=== PATIENT | female | born 1995 | race Caucasian/White ===

== ENCOUNTER 2016-12-24 13:23 | Emergency (ER) | payer OTHER ==
--- NOTE | 2016-12-24 13:51 | ED ---
General Adult HPI - General Chief complaint: Urogenital Stated complaint: poss UTI Time Seen by Provider: 12/24/16 13:38 Source: patient, RN notes reviewed Mode of arrival: ambulatory Limitations: no limitations - History of Present Illness Initial comments: 21-year-old female presents emergency Department chief complaint of urinary frequency and dysuria. Patient states doesn't present last 4-5 days. Patient felt that she may have seen some blood. She denies any chance of . She has mid to multiple urinary tract infections in the past. She has no flank pain no back pain denies any nausea, vomiting diarrhea constipation. Denies any fevers or chills. She does admit to ALLERGY to Bactrim. Patient offers no other complaints. - Related Data Home Medications Medication Instructions Recorded Confirmed Norelgestromin/Ethin.estradiol 1 patch TRANSDERM SA 12/24/16 12/24/16 [Xulane Patch] Previous Rx's Medication Instructions Recorded Ciprofloxacin HCl [Cipro] 500 mg PO Q12HR #10 tablet 12/24/16 Allergies Allergy/AdvReac Type Severity Reaction Status Date / Time sulfamethoxazole Allergy Rash/Hives Verified 12/24/16 13:52 [From Bactrim] trimethoprim [From Bactrim] Allergy Rash/Hives Verified 12/24/16 13:52 Review of Systems ROS Statement: Those systems with pertinent positive or pertinent negative responses have been documented in the HPI. ROS Other: All systems not noted in ROS Statement are negative. Past Medical History Past Medical History: No Reported History Additional Past Medical History / Comment(s): herpes History of Any Multi-Drug Resistant Organisms: None Reported Past Surgical History: Section, Ear Surgery Past Anesthesia/Blood Transfusion Reactions: No Reported Reaction Additional Past Anesthesia/Blood Transfusion Reaction / Comment(s): has never had anesthesia before Past Psychological History: Anxiety, Depression Smoking Status: Former smoker Past Alcohol Use History: Occasional Past Drug Use History: None Reported - Past Family History Mother Family Medical History: No Reported History General Exam Limitations: no limitations General appearance: alert, in no apparent distress Respiratory exam: Present: normal lung sounds bilaterally. Absent: respiratory distress, wheezes, rales, rhonchi, stridor Cardiovascular Exam: Present: regular rate, normal rhythm, normal heart sounds. Absent: systolic murmur, diastolic murmur, rubs, gallop, clicks GI/Abdominal exam: Present: soft, tenderness (Minimal suprapubic), normal bowel sounds. Absent: distended, guarding, rebound, rigid Back exam: Absent: CVA tenderness (R), CVA tenderness (L) Skin exam: Present: warm, dry, intact, normal color. Absent: rash Course Vital Signs 12/24/16 13:34 Temperature 98.4 F Pulse Rate 71 Respiratory 15 Rate Blood Pressure 116/57 O2 Sat by Pulse 97 Oximetry Medical Decision Making - Medical Decision Making 21-year-old female presented for dysuria. Patient has 8 wbc and urinalysis. Patient was treated for UTI as she is symptomatic at this time. Patient will have urine culture. Patient follow-up with primary care physician. Return parameters were discussed. - Lab Data Lab Results 12/24/16 Range/Units 14:00 Urine Color Yellow Urine Appearance Clear (Clear) Urine pH 6.0 (5.0-8.0) Ur Specific [place] 1.019 (1.001-1.035) Urine Protein Trace H (Negative) Urine Glucose (UA) Negative (Negative) Urine Ketones Negative (Negative) Urine Blood Negative (Negative) Urine Nitrite Negative (Negative) Urine Bilirubin Negative (Negative) Urine Urobilinogen <2.0 (<2.0) mg/dL Ur Leukocyte Esterase Trace H (Negative) Urine RBC 1 (0-5) /hpf Urine WBC 8 H (0-5) /hpf Ur Squamous Epith Cells <1 (0-4) /hpf Urine Bacteria Rare H (None) /hpf Urine Mucus Moderate H (None) /hpf Disposition Clinical Impression: Urinary tract infection Disposition: HOME SELF-CARE Condition: Stable Instructions: Urinary Tract Infection in Women (ED) Additional Instructions: Please return to the Emergency Department if symptoms worsen or any other concerns. Prescriptions: Ciprofloxacin HCl [Cipro] 500 mg PO Q12HR #10 tablet Referrals: Chavo Burch DO [Primary Care Provider] - 1-2 days Time of Disposition: 14:23
[2016-12-24 14:19] LABS: Appearance,Urine Clear (Clear); Bacteria,Urine Rare /hpf; Bilirubin,Urine Negative (Negative); Glucose,Urine (UA) Negative (Negative); Ketones,Urine Negative (Negative); Leukocyte Esterase,Urine Trace (Negative); Mucus,Urine Moderate /hpf; Nitrite,Urine Negative (Negative); Particle Count 8230; Protein,Urine Trace (Negative); RBC,Urine 1 /hpf (0-5); Specific Gravity,Urine 1.019 (1.001-1.035); Squamous Epithelial Cell,Urine <1 /hpf (0-4); UA Billing (MACRO vs. MICRO) MICRO; Urobilinogen,Urine <2.0 mg/dL (<2.0); WBC,Urine 8 /hpf (0-5)
[2016-12-24 14:36] VITALS: BP 104/57; PULSE 72; RESP 18; TEMP 98.1
== END 2016-12-24 14:37 | disposition home or self-care (01) ==
LOC: EC 13:23
DX: N39.0 Urinary tract infection, site not specified (principal); Z87.891 Personal history of nicotine dependence; Z79.3 Long term (current) use of hormonal contraceptives; Z88.1 Allergy status to other antibiotic agents
CPT/HCPCS: 81001; 81025; 87086; 99283

== ENCOUNTER 2017-01-07 12:18 | Emergency (ER) | payer OTHER ==
[2017-01-07 12:29] VITALS: BP 123/67; PULSE 72; RESP 16; TEMP 98
--- NOTE | 2017-01-07 13:17 | ED ---
Upper Extremity HPI - General Chief Complaint: Extremity Injury, Upper Stated Complaint: Hook in thumb Time Seen by Provider: 01/07/17 12:24 Source: patient Mode of arrival: ambulatory Limitations: no limitations - History of Present Illness Initial Comments: 21-year-old female presents with left thumb fishhook for the last 18 hours. Patient states she did cut part of the fishhook off but can't get the resident through. Patient states she slipped on the inner thumb. She denies any fevers. She states her tetanus is up-to-date. Patient states she did try to clean it. Patient states it hurts to move her thumb but no loss of range of motion or sensation. No other concerns or complaints. MD Complaint: Injury to:: left, finger -: hour(s) (18) Other Extremity Injury: Fingers: Left (thumb) Improves With: immobilization Worsens With: movement of extremity Context: other (fish hook) - Related Data Home Medications Medication Instructions Recorded Confirmed Norelgestromin/Ethin.estradiol 1 patch TRANSDERM SA 12/24/16 01/07/17 [Xulane Patch] Previous Rx's Medication Instructions Recorded Cephalexin [Keflex] 500 mg PO Q8HR #30 cap 01/07/17 Allergies Allergy/AdvReac Type Severity Reaction Status Date / Time sulfamethoxazole Allergy Rash/Hives Verified 01/07/17 12:31 [From Bactrim] trimethoprim [From Bactrim] Allergy Rash/Hives Verified 01/07/17 12:31 Review of Systems ROS Statement: Those systems with pertinent positive or pertinent negative responses have been documented in the HPI. ROS Other: All systems not noted in ROS Statement are negative. Skin: Reports: other (Left thumb fishhook) Past Medical History Past Medical History: No Reported History Additional Past Medical History / Comment(s): herpes History of Any Multi-Drug Resistant Organisms: None Reported Past Surgical History: Section, Ear Surgery Past Anesthesia/Blood Transfusion Reactions: No Reported Reaction Additional Past Anesthesia/Blood Transfusion Reaction / Comment(s): has never had anesthesia before Past Psychological History: Anxiety, Depression Smoking Status: Current every day smoker Past Alcohol Use History: Daily Past Drug Use History: None Reported - Past Family History Mother Family Medical History: No Reported History General Exam Limitations: no limitations General appearance: alert, in no apparent distress Neurological exam: Present: alert, oriented X3, CN II-XII intact Psychiatric exam: Present: normal affect, normal mood Skin exam: Present: warm, dry, normal color. Absent: intact (puncture wound, left thumb, slight swelling, + tender, limited ROM due to pain ), rash Course Vital Signs 01/07/17 12:25 Temperature 98 F Pulse Rate 72 Respiratory 16 Rate Blood Pressure 123/67 O2 Sat by Pulse 96 Oximetry Procedures - Procedures Initial comment: Patient was prepped and draped appropriately 1.5 mL of 1% lidocaine was used locally around the fishhook. Patient tolerated it well. [place] was pushed through and the [place] was snipped off. Patient was soaked in Betadine and normal saline bacitracin and dressing was applied patient tolerated it well. No consultations. Medical Decision Making - Medical Decision Making Discussed importance of good wound care. Patient will be sent home with good wound care instructions along with antibiotics. Patient states her tetanus is up-to-date. Patient to keep monitoring her puncture wound if redness swelling fevers or discharge occur patient to return. Disposition Clinical Impression: Fish hook injury of finger of left hand, Puncture wound Disposition: HOME SELF-CARE Condition: Good Instructions: Puncture Wound (ED), Soft Tissue Foreign Body (ED) Prescriptions: Cephalexin [Keflex] 500 mg PO Q8HR #30 cap Referrals: Chavo Burch DO [Primary Care Provider] - 1-2 days Time of Disposition: 13:21
--- NOTE | 2017-01-07 13:29 | XR ---
EXAMINATION TYPE: XR finger LT DATE OF EXAM: 01/07/2017 COMPARISON: 10/15/2013 HISTORY: 21-year-old female with a pain, fish hook in the left thumb TECHNIQUE: 3 views coned down left thumb FINDINGS: [place] is present within the soft tissues of the radial aspect of the mid thumb. On the AP view, th is closely approaches but does not touch the bone. Associated soft tissue swelling. No acute fracture or dislocation. IMPRESSION: [place] with the radial mid thumb soft tissues. On the AP view, this closely approaches but does not contact the underlying bone. No acute fracture or dislocation.
== END 2017-01-07 13:25 | disposition home or self-care (01) ==
LOC: EC 12:18
DX: S61.042A Puncture wound with foreign body of left thumb without damage to nail, initial encounter (principal); F17.200 Nicotine dependence, unspecified, uncomplicated; Z88.2 Allergy status to sulfonamides; Z79.3 Long term (current) use of hormonal contraceptives; W45.8XXA Other foreign body or object entering through skin, initial encounter
CPT/HCPCS: 99283

== ENCOUNTER → 2017-03-30 | Outpatient (CLI) | payer OTHER ==
--- NOTE | 2017-03-30 23:44 | MR ---
EXAMINATION TYPE: MR brain wo/w con DATE OF EXAM: 03/30/2017 COMPARISON: NONE HISTORY: Migraines w/o aura TECHNIQUE: Multiplanar, multisequence images of the brain and brainstem is performed without and with IV contras t, utilizing 10 mL intravenous Gadavist . FINDINGS: The ventricles and sulci appear normal. There is no mass effect nor midline shift. There is no sign of intracranial hemorrhage. There is a 12 mm area of ring decreased signal in the cortex lef t parietal lobe. The brainstem is intact. Corpus callosum appears normal. Sella turcica is normal. There is a prominen t draining vein posterior to the low signal lesion. There is normal appearance of the venous sinuses. I see no pathologic enhancement. IMPRESSION: 12 mm lesion in the left parietal lobe with draining vein. 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 No acute intracranial abnormality. The remainder of the brain appears normal.
== END | disposition home or self-care (01) ==
LOC: RADMRIMAIN 17:49
PROVIDERS: ATTEND Physician Assistant
DX: G93.9 Disorder of brain, unspecified (principal); G43.009 Migraine without aura, not intractable, without status migrainosus
CPT/HCPCS: 70553; A9581

== ENCOUNTER 2017-09-07 11:31 | Emergency (ER) | payer OTHER ==
[2017-09-07] MEDS ORDERED: METOCLOPRAMIDE 5 MG/ML 2 ML VIAL IM STA (12:31)
[2017-09-07] MEDS ORDERED: KETOROLAC 30 MG/ML 1 ML VIAL IM STA (12:31)
[2017-09-07] MEDS ORDERED: diphenhydrAMINE 50 MG CAP PO STA (12:31)
--- NOTE | 2017-09-09 06:15 | CDI ---
Documentation Clarification OP Dear Abimbola TY, DO Please do addendum of ED physician document. Thank you, Candida Foster Professor Of Criminal Justice If you have any question, Please contact assistant inventory manager at [phone] [facility]
== END 2017-09-07 13:36 | disposition home or self-care (01) ==
LOC: EC 11:31
DX: R51 Headache (principal); T43.295A Adverse effect of other antidepressants, initial encounter; R11.0 Nausea; R25.1 Tremor, unspecified; Z85.828 Personal history of other malignant neoplasm of skin; Z88.2 Allergy status to sulfonamides
CPT/HCPCS: 81025; 99284; J2765; J1885

== ENCOUNTER → 2018-10-24 | Outpatient (CLI) | payer OTHER ==
--- NOTE | 2018-10-24 15:24 | US ---
EXAMINATION TYPE: Transabdominal DATE OF EXAM: 10/24/2018 9:36 AM COMPARISON: NONE CLINICAL HISTORY: Z36 confirm dates. Dates EXAM PERFORMED: Transabdominal (TA) EXAM MEASUREMENTS: GESTATIONAL AGE / DATING Dates by LMP: (8 weeks/5 days) EDC: 05/31/2019 Dates by Current Scan for: (7 weeks/6 days) EDC: 06/06/2019 MATERNAL ANATOMY Uterus: 9.6 x 6.6 x 5.8 cm Right Ovary: 4.5 x 3.0 x 2.4 cm Left Ovary: 3.0 x 1.5 x 2.0 cm Post CDS / Adnexa: no free fluid Presence of free fluid: no Presence of corpus luteal cyst: right ovarian cystic appearing lesion - 2.3 x 2.7 x 2.1 cm Presence of subchorionic bleed: hypoechoic area seen at 1.4 x 1.1 x 1.1 cm GESTATION / SURVEY CRL: 1.5 cm (7 weeks/6 days) MSD: seen, not measured Yolk Sac (normal less than 6mm): 2.8 mm Heart Rate: 155 bpm Rhythm: Normal IUP: Viable IUP Date of LMP: 08/24/2018, Beta HcG (if available): Not available at this time Single live IUP measuring 7 weeks 5 days. IMPRESSION: Single live intrauterine with sonographic age of 7 weeks and 5 days and estimated date of d elivery of 06/06/2019, overall concordant with menstrual age. Small subchorionic hemorrhage is seen oc cupying just less than 25% the gestational sac diameter.
== END | disposition home or self-care (01) ==
LOC: RADUSWWP 09:09
PROVIDERS: ATTEND Obstetrics & Gynecology
DX: Z36.9 Encounter for antenatal screening, unspecified (principal); Z3A.01 Less than 8 weeks gestation of pregnancy
CPT/HCPCS: 76801

== ENCOUNTER → 2019-03-05 | Outpatient (CLI) | payer OTHER ==
[2019-03-05 14:34] LABS: HCT 34.4 % (34.0-46.0); HGB 11.5 gm/dL (11.4-16.0); MCH 30.1 pg (25.0-35.0); MCHC 33.5 g/dL (31.0-37.0); MCV 89.9 fL (80.0-100.0); Mean Platelet Volume 7.2; Platelet Count 246 k/uL (150-450); RBC 3.82 m/uL (3.80-5.40); RDW 14.4 % (11.5-15.5); WBC 10.1 k/uL (3.8-10.6)
== END | disposition home or self-care (01) ==
LOC: LABWHC1 12:31
PROVIDERS: ATTEND Obstetrics & Gynecology
DX: Z34.82 Encounter for supervision of other normal pregnancy, second trimester (principal)
CPT/HCPCS: 36415; 82950; 85027

== ENCOUNTER 2019-03-26 13:39 | Outpatient (CLI) | payer OTHER ==
[2019-03-26 17:20] VITALS: BP 118/55; PULSE 97; RESP 18; TEMP 99
--- NOTE | 2019-05-01 00:01 | P.MSEPDOC ---
Presenting Problems - Arrival Data Date of Arrival on Unit: 03/26/19 Time of Arrival on Unit: 13:35 Mode of Transport: EMS - Complaint OB-Reason for Admission/Chief Complaint: Rule Out PROM, Other Comment: by ems for evaluation for labor states contx 20-30 min apart. also sttes increase in discharge. went to [facility] initially. no care avail there. pt is pt of dr botello. pt transferred to triage 2 from ems for eval for contractions Medical History - Information : 2 Para: 1 Term: 1 : 0 Abortions: Spontaneous or Elective: 0 Number of Living Children: 1 - Gestational Age Gestational Age by CORAZON (wks/days): 29 Weeks and 6 Days - History Complications: Prior Sexually Transmitted Diseases: HSV Comment: no active lesions since december 2018. Review of Systems - Review of Systems Constitutional: No problems Breast: No problems ENT: No problems Cardiovascular: No problems Respiratory: No problems Gastrointestinal: No problems Genitourinary: No problems Musculoskeletal: No problems Neurological: No problems Skin: No problems Vital Signs - Temperature Temperature: 99.0 F Temperature Source: Oral - Pulse Right Brachial Pulse Rate: 97 Pulse Assessment Method: Automatic Cuff - Respirations Respiratory Rate: 18 Oxygen Delivery Method: Room Air O2 Sat by Pulse Oximetry: 98 - Blood Pressure Right Arm Blood Pressure: 118/55 Blood Pressure Mean: 76 Blood Pressure Source: Automatic Cuff Medical Screen Scoring (Pre) - Cervical Exam Dilation: 0 cm = 0 Membranes: Intact - Uterine Contractions Frequency: N/A Duration: N/A Intensity: N/A - Maternal Vital Signs Maternal Temperature: N/A Maternal Blood Pressure: N/A Signs of Preeclampsia: N/A Maternal Respirations: N/A - Maternal Trauma Maternal Trauma: N/A - Assessment - Baby A Baseline FHR: 140 Heart Rate - NICHD Category: Category I (Normal) = 0 NST: Reactive Position: N/A Station: N/A - Total Score - Baby A Total Score - Baby A: 0 - Total Score - Baby B Total Score - Baby B: 0 - Total Score - Baby C Total Score - Baby C: 0 - Level of Risk - Baby A Level of Risk - Baby A: Low (0-5) - Level of Risk - Baby B Level of Risk - Baby B: Low (0-5) - Level of Risk - Baby C Level of Risk - Baby C: Low (0-5) Physician Notification (Pre) - Physician Notified Physician Notified Date: 03/26/19 Physician Notified Time: 14:30 Spoke With: rajwinder Zhou Order Received: Yes - Notification Comment Comment: discharge home. to keep next sched appt with dr ahmadi on 04-02 Medical Screen Scoring (Post) - Cervical Exam Dilation: Exam Deferred Effacement: Exam Deferred - Uterine Contractions Frequency: N/A Duration: N/A Intensity: N/A - Maternal Vital Signs Maternal Temperature: N/A Maternal Blood Pressure: N/A Signs of Preeclampsia: N/A Maternal Respirations: N/A - Pain Assessment Pain Scale Used: Numeric (1 - 10) Pain Intensity: 0 - Maternal Trauma Maternal Trauma: N/A - Assessment - Baby A Heart Rate: 135 Heart Rate - NICHD Category: Category I (Normal) = 0 NST: Reactive Position: N/A Station: N/A - Total Score Total Score - Baby A: 0 Total Score - Baby B: 0 Total Score - Baby C: 0 - Post Treatment Level of Risk Post Treatment Level of Risk - Baby A: Low (0-5) Post Treatment Level of Risk - Baby B: Low (0-5) Post Treatment Level of Risk - Baby C: Low (0-5) Physician Notification (Post) - Physician Notified Physician Notified Date: 03/26/19 Physician Notified Time: 14:30 Spoke With: rajwinder Zhou Order Received: No Disposition - Disposition OB Disposition: Discharge to home Discharge Date: 03/26/19 Discharge Time: 14:40 I agree with the RN Medical Screening Exam: Yes Risk & Benefit of care provided described in d/c instruction: Yes Diagnosis: FALSE LABOR BEFORE 37 COMPLETED WEEKS OF GEST, SECOND TRI
== END 2019-03-26 14:40 | disposition home or self-care (01) ==
LOC: FBPOP 13:39
PROVIDERS: ATTEND Obstetrics & Gynecology
DX: O47.03 False labor before 37 completed weeks of gestation, third trimester (principal); Z3A.29 29 weeks gestation of pregnancy
CPT/HCPCS: 59025; 96361; G0463; 99213

== ENCOUNTER 2019-05-26 15:47 | Emergency (ER) | payer OTHER ==
[2019-05-26 15:59] VITALS: BP 108/65; PULSE 70; RESP 16; TEMP 97.4
--- NOTE | 2019-05-26 16:12 | ED ---
Eye Problem HPI - General Chief complaint: Eye Problems Stated complaint: pink eye Source: patient Mode of arrival: ambulatory Limitations: no limitations - History of Present Illness Initial comments: 24-year-old female currently 38 weeks presents emergency department today for chief complaint of bilateral redness drainage itchy. Patient states that her son is currently being treated for pinkeye she states that her eyes of an itchy red bilaterally and the resting in the morning. Patient states that she's been taking her son's ciprofloxacin drops however she wants her on prescription and to be healthy prior to the patient's of her son. She states that the redness has decreased however she is crusting the morning still and eye irritation. Patient denies contact lens use she states she's been wearing her glasses. Patient denies any vision loss, either rashes diplopia or any other concerns. Remaining review of systems negative upon arrival patient a ppears well signs acute distress - Related Data Home Medications Medication Instructions Recorded Confirmed Pnv,Calcium 72/Iron/Folic Acid 1 each PO DAILY MDD 1 03/26/19 03/26/19 [ Plus Tablet] Ranitidine HCl [Zantac] 150 mg PO HS 03/26/19 03/26/19 Previous Rx's Medication Instructions Recorded Erythromycin Ophth Oint [Romycin 1 applic BOTH EYES QID 3 Days #1 05/26/19 Ophth Oint] tube Allergies Allergy/AdvReac Type Severity Reaction Status Date / Time sulfamethoxazole Allergy Rash/Hives Verified 05/26/19 15:59 [From Bactrim] trimethoprim [From Bactrim] Allergy Rash/Hives Verified 05/26/19 15:59 Review of Systems ROS Statement: Those systems with pertinent positive or pertinent negative responses have been documented in the HPI. ROS Other: All systems not noted in ROS Statement are negative. Past Medical History Past Medical History: No Reported History Additional Past Medical History / Comment(s): herpes History of Any Multi-Drug Resistant Organisms: None Reported Past Surgical History: Section, Ear Surgery Past Anesthesia/Blood Transfusion Reactions: No Reported Reaction Additional Past Anesthesia/Blood Transfusion Reaction / Comment(s): has never had anesthesia before Past Psychological History: Anxiety, Depression Smoking Status: Former smoker Past Alcohol Use History: None Reported Past Drug Use History: None Reported - Past Family History Mother Family Medical History: No Reported History General Exam - General Exam Comments Initial Comments: General: The patient is awake and alert, in no distress, and does not appear acutely ill. Eye: +3 mm pupils are equal, round and reactive to light, extra-ocular movements are intact. No nystagmus. There is very mild b/l conjunctival injection. no crusting noted. No signs of icterus. Cardiovascular: There is a regular rate and rhythm. No murmur, rub or gallop is appreciated. Respiratory: Lungs are clear to auscultation, respirations are non-labored, breath sounds are equal. No wheezes, stridor, rales, or rhonchi. Musculoskeletal: Normal ROM, no tenderness. Strength 5/5. Sensation intact. Pulses equal bilaterally 2+. Neurological: A&O x 3. CN II-XII intact grossly, There are no obvious motor or sensory deficits. Coordination appears grossly intact. Speech is normal. Skin: Skin is warm and dry and no rashes or lesions are noted. Psychiatric: Cooperative, appropriate mood & affect, normal judgment. Limitations: no limitations Course Vital Signs 05/26/19 15:57 Temperature 97.4 F L Pulse Rate 70 Respiratory 16 Rate Blood Pressure 108/65 O2 Sat by Pulse 97 Oximetry Medical Decision Making - Medical Decision Making 24-year-old female presenting for bilateral conjunctival injection. Son being treated for pink eye. Patient states she's been using his drops. Patient has mild conjunctival injection bilaterally states she wakes up with crusting. No other complaints patient appears well afebrile no signs of systemic disease. Patient be prescribed erythromycin given primary care follow-up return parameters were discussed case discussed with attending provider patient was discharged appearing well. Disposition Clinical Impression: Conjunctivitis Disposition: HOME SELF-CARE Condition: Good Instructions (If sedation given, give patient instructions): Conjunctivitis (ED) Additional Instructions: Please use medication as discussed. Please follow-up with family doctor in the next 2 days. Please return to emergency room if the symptoms increase or worsen or for any other concerns. Prescriptions: Erythromycin Ophth Oint [Romycin Ophth Oint] 1 applic BOTH EYES QID 3 Days #1 tube Is patient prescribed a controlled substance at d/c from ED?: No Referrals: Chavo Burch DO [Primary Care Provider] - 1-2 days Time of Disposition: 16:11
== END 2019-05-26 16:15 | disposition home or self-care (01) ==
LOC: EC 15:47
DX: O99.89 Other specified diseases and conditions complicating pregnancy, childbirth and the puerperium (principal); H10.9 Unspecified conjunctivitis; Z3A.38 38 weeks gestation of pregnancy; Z79.899 Other long term (current) drug therapy; Z88.1 Allergy status to other antibiotic agents; Z88.2 Allergy status to sulfonamides; Z87.891 Personal history of nicotine dependence
CPT/HCPCS: 99283

== ENCOUNTER 2019-06-04 05:55 | Inpatient (IN) | payer OTHER ==
[2019-05-28 12:48] VITALS: BMI 37.8
--- NOTE | 2019-06-03 18:10 | P.HPOB ---
History of Present Illness H&P Date: 06/03/19 Chief Complaint: Scheduled repeat section This is a 24 y.o. female, 2, para 1, with an estimated date of confinement of 06/06/2019, estimated gestational age of 39-5/7 weeks, who presents for repeat section. She admits to good movement. She c omplains of occasional contractions. OB Hx: . History of 1 previous section. 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 Social Hx: Single. Unemployed. Review of Systems Constitutional: Denies chills, Denies fever Eyes: denies blurred vision, denies pain Ears, nose, mouth and throat: Denies headache, Denies sore throat Cardiovascular: Denies chest pain, Denies shortness of breath Gastrointestinal: Reports abdominal pain (irregular ctxs) Genitourinary: Reports pelvic pain, Reports Musculoskeletal: Reports low back pain Integumentary: Denies pruritus, Denies rash Neurological: Denies numbness, Denies weakness Psychiatric: Denies anxiety, Denies depression Past Medical History Past Medical History: GERD/Reflux Additional Past Medical History / Comment(s): herpes History of Any Multi-Drug Resistant Organisms: None Reported Past Surgical History: Section, Ear Surgery Past Anesthesia/Blood Transfusion Reactions: No Reported Reaction Additional Past Anesthesia/Blood Transfusion Reaction / Comment(s): has never had anesthesia before Past Psychological History: No Psychological Hx Reported Smoking Status: Former smoker Past Alcohol Use History: None Reported Past Drug Use History: None Reported - Past Family History Mother Family Medical History: No Reported History Medications and Allergies Home Medications Medication Instructions Recorded Confirmed Type Pnv,Calcium 72/Iron/Folic Acid 1 each PO DAILY MDD 1 03/26/19 05/28/19 History [ Plus Tablet] Ranitidine HCl [Zantac] 150 mg PO HS 03/26/19 06/04/19 History Acyclovir [Zovirax] 400 mg PO BID 05/28/19 05/28/19 History Allergies Allergy/AdvReac Type Severity Reaction Status Date / Time sulfamethoxazole Allergy Rash/Hives Verified 06/04/19 06:15 [From Bactrim] trimethoprim [From Bactrim] Allergy Rash/Hives Verified 06/04/19 06:15 Exam Osteopathic Statement: *. No significant issues noted on an osteopathic structural exam other than those noted in the History and Physical/Consult. HEENT: within normal limits Heart: regular rate and rhythm Lungs: clear to auscultation Abdomen: Cervix: 1.5 cm/70%/-1 heart tones: 140s by doppler Extremities: negative Homans Results Result Diagrams: 06/04/19 06:20 Assessment and Plan (1) 39 weeks gestation of Current Visit: No Status: Acute Code(s): Z3A.39 - 39 WEEKS GESTATION OF SNOMED Code(s): 40817212 (2) Previous delivery affecting Current Visit: No Status: Acute Code(s): O34.219 - MATERNAL CARE FOR UNSP TYPE SCAR FROM PREVIOUS DEL SNOMED Code(s): 318053032 Plan: Proceed with repeat section. I have discussed the risks, benefits, and alternative therapies for the above- mentioned procedure and for both sedation/anesthesia as well as necessary blood products administration, if indicated, as they pertain to this patient. The patient has indicated her understanding and acceptance of the risks and procedures discussed.
[2019-06-04] MEDS ORDERED: CITRIC ACID-SODIUM CITRATE 15 ML CUP PO ONE (06:19)
[2019-06-04] MEDS ORDERED: LIDOCAINE 1% 20 ML VIAL (10MG/ML) FOR IV START INTRADERMA PRN (06:19)
[2019-06-04 06:29] LABS: Basophils % (A) 0 %; Eosinophils # (A) 0.1 k/uL (0-0.7); Eosinophils % (A) 1 %; HCT 36.5 % (34.0-46.0); HGB 12.2 gm/dL (11.4-16.0); Lymphocytes # (A) 1.8 k/uL (1.0-4.8); Lymphocytes % (A) 20 %; MCH 30.2 pg (25.0-35.0); MCHC 33.5 g/dL (31.0-37.0); Mean Platelet Volume 6.8; Monocytes # (A) 0.4 k/uL (0-1.0); Monocytes % (A) 4 %; Neutrophils # (A) 6.4 k/uL (1.3-7.7); Neutrophils % (A) 72 %; Platelet Count 230 k/uL (150-450); RBC 4.06 m/uL (3.80-5.40); RDW 13.8 % (11.5-15.5); WBC 8.9 k/uL (3.8-10.6)
[2019-06-04] MEDS: LACTATED RINGERS 1,000 ML IV SCH ×2 (06:39→12:12)
[2019-06-04] MEDS ORDERED: NALBUPHINE 10 MG/ML (1 ML AMP) ONE (07:58)
[2019-06-04] MEDS ORDERED: MORPHINE SULFATE (PF) 0.3 MG/0.3 ML SYR ONE (07:58)
[2019-06-04] MEDS ORDERED: ONDANSETRON 4 MG/2 ML VIAL ONE (07:58)
[2019-06-04] MEDS ORDERED: KETOROLAC 30 MG/ML 1 ML VIAL ONE (07:58)
[2019-06-04] MEDS ORDERED: OXYTOCIN 10 UNIT/ML 1 ML VIAL ONE (07:58)
--- NOTE | 2019-06-04 08:40 | P.OP ---
Date of Procedure: 06/04/19 Preoperative Diagnosis: 1. Intrauterine at 39-5/7 weeks. 2. History of previous section. 3. History of herpes. Postoperative Diagnosis: Same Procedure(s) Performed: Repeat low transverse section Anesthesia: spinal (Duramorph) Surgeon: Natalie Baumann Supervisor Nurse #1: Angie Fontanez Estimated Blood Loss (ml): 500 Pathology: none sent Condition: stable Disposition: floor Indications for Procedure: This is a 24-year-old female 2 para 1 at 39-5/7 weeks who presented for repeat section. She did have a history of herpes but no recent outbreaks. I have discussed the risks, benefits, and alternative therapies for the above- mentioned procedure and for both sedation/anesthesia as well as necessary blood products administration, if indicated, as they pertain to this patient. The patient has indicated her understanding and acceptance of the risks and procedures discussed. Operative Findings: A viable male is noted in the vertex presentation with scores of 9 at 1 minute and 9 at 5 minutes and infant weight of 7 lbs. 3 oz. Normal uterus tubes and ovaries are noted. Description of Procedure: The patient is taken to the operating room where she is placed in the dorsal supine position with leftward tilt after spinal Duramorph anesthesia is given. She is prepped and draped in the normal sterile fashion. Skin was tested and found to be adequately anesthetized. A Pfannenstiel skin incision was made with a scalpel through the previous laparotomy scar. A second knife was used to carry the incision down to the underlying layer of fascia. The fascia was nicked in the midline with a scalpel and then extended laterally bilaterally with Muñiz scissors. The anterior lip of the fascia was grasped with 2 Ame clamps and then dissected off the underlying rectus muscle in the midline with Muñiz scissors. The inferior aspect of the fascial incision was grasped with 2 Ame clamps and dissected off the underlying rectus muscle and the midline with Muñiz scissors. Next the peritoneum layer was tented up with 2 hemostats and then entered sharply with the scalpel. The incision is extended superiorly and inferiorly with Metzenbaum scissors. Next a DeLee retractor is placed. The vesicouterine peritoneum is entered sharply with Metzenbaum scissors and extended laterally bilaterally with Metzenbaum scissors and then the bladder f lap is pushed inferiorly. The lower uterine segment is incised in transverse fashion with the scalpel and then bluntly entered with a hemostat. Clear fluid is noted. The incision was then extended laterally bilaterally with 2 fingers. Next the 's head is delivered through the incision. Nose and mouth are bulb suctioned. The remainder of the is easily delivered and placed on mother's abdomen. Cord is clamped and cut. is taken to warmer by nursing staff. Uterine fundus is gently massaged and placenta is delivered manually. Uterus is exteriorized and cleared of all clots and debris. Uterine incision is closed with 0 Vicryl suture in a running locked fashion. A second layer of 0 Vicryl suture is used in a running fashion for hemostasis. Excellent hemostasis is noted. Posterior cul-de-sac is suctioned of all clots and debris. Uterus is returned to the abdomen. Incision is noted to be hemostatic. Peritoneal layer is closed with 0 Vicryl suture in a running fashion. Muscle layer is reapproximated with 0 Vicryl suture in interrupted fashion. Fascia layer is then closed with 0 PDS suture with 2 sutures meeting in the midline and the knots buried in either side and in the midline. The subcutaneous tissue was then closed with 2-0 Vicryl suture. Skin layer was then closed with oscar. All sponge and needle counts are correct. The patient is taken to recovery room in stable condition.
[2019-06-04] MEDS ORDERED: NALOXONE 0.4 MG/ML 1 ML VIAL IV PRN (09:04)
[2019-06-04] MEDS ORDERED: METOCLOPRAMIDE 5 MG/ML 2 ML VIAL IVP PRN (09:04)
[2019-06-04] MEDS ORDERED: ZOLPIDEM 5 MG TAB PO PRN (09:04)
[2019-06-04] MEDS ORDERED: LANOLIN CREAM 5 GM TUBE TOPICAL PRN (09:04)
[2019-06-04] MEDS ORDERED: ACETAMINOPHEN TAB 325 MG TAB PO PRN (09:04)
[2019-06-04] MEDS ORDERED: diphenhydrAMINE 50 MG CAP PO PRN (09:04)
[2019-06-04] MEDS ORDERED: MEASLES-MUMPS-RUBELLA VACC/PF 12,500 UNIT/0.5 ML VIAL SQ ONE (09:04)
[2019-06-04] MEDS ORDERED: diphenhydrAMINE 25 MG CAP PO PRN (09:04)
[2019-06-04] MEDS ORDERED: diphenhydrAMINE 50 MG/ML 1 ML VIAL IVP PRN ×3 (09:04→09:51)
[2019-06-04] MEDS ORDERED: ONDANSETRON 4 MG/2 ML VIAL IVP PRN ×2 (09:04→09:51)
[2019-06-04] MEDS ORDERED: OXYTOCIN 20 UNITS/1000 ML NS 1,000 ML IV SCH (09:04)
[2019-06-04] MEDS: SENNOSIDES-DOCUSATE SODIUM 1 EACH TAB PO SCH ×2 (09:20→19:38)
[2019-06-04] MEDS ORDERED: NALBUPHINE 10 MG/ML (1 ML AMP) IV PRN (09:51)
[2019-06-04] MEDS ORDERED: HYDROmorphone 0.5 MG/0.5 ML SYRINGE IVP PRN (09:51)
[2019-06-04] MEDS: ACYCLOVIR 200 MG CAP PO SCH ×2 (09:56→21:20)
[2019-06-04] MEDS: KETOROLAC 30 MG/ML 1 ML VIAL IVP PRN ×2 (15:58→23:25)
[2019-06-04] MEDS: FAMOTIDINE 20 MG TAB PO SCH ×2 (21:20→21:21)
[2019-06-05] MEDS: HYDROcodone/APAP 5-325MG 1 EACH TAB PO PRN ×2 (07:26→23:09)
[2019-06-05 08:23] LABS: Basophils % (A) 0 %; Eosinophils # (A) 0.1 k/uL (0-0.7); Eosinophils % (A) 1 %; HCT 32.9 % (34.0-46.0); HGB 11.1 gm/dL (11.4-16.0); Lymphocytes # (A) 1.2 k/uL (1.0-4.8); Lymphocytes % (A) 17 %; MCH 30.4 pg (25.0-35.0); MCHC 33.8 g/dL (31.0-37.0); MCV 90.1 fL (80.0-100.0); Monocytes # (A) 0.3 k/uL (0-1.0); Monocytes % (A) 5 %; Neutrophils # (A) 5.2 k/uL (1.3-7.7); Neutrophils % (A) 75 %; Platelet Count 202 k/uL (150-450); RBC 3.65 m/uL (3.80-5.40); RDW 14.1 % (11.5-15.5); WBC 6.9 k/uL (3.8-10.6)
--- NOTE | 2019-06-05 08:40 | P.PNOBGPC ---
Subjective - Subjective Principal diagnosis: Status post repeat section postoperative day #1 Interval history: Patient is doing well. She is breast-feeding. Lochia is decreasing. Her pain is fairly well controlled. She is passing some flatus but no bowel movement yet. She is urinating without difficulty. Patient reports: Reports appetite normal, Reports voiding normally, Reports pain well controlled, Reports ambulating normally : doing well, nursing well Objective - Vital Signs Latest vital signs: Vital Signs Temp Pulse Pulse Resp BP Pulse Ox 06/05/19 05:57 16 06/05/19 04:00 16 06/05/19 02:00 16 06/05/19 00:00 98.4 F 62 16 105/60 06/04/19 20:30 20 06/04/19 20:00 98.3 F 62 20 102/56 95 06/04/19 18:00 16 99 06/04/19 16:00 16 99 06/04/19 15:46 98.2 F 60 18 108/62 99 06/04/19 14:51 16 98 06/04/19 12:51 16 06/04/19 12:00 97.6 F 54 L 16 104/51 97 06/04/19 10:51 16 98 06/04/19 10:41 96.1 F L 50 L 16 101/56 98 06/04/19 10:11 49 L 16 108/57 06/04/19 09:51 16 98 06/04/19 09:41 52 L 16 101/58 98 06/04/19 09:26 53 L 16 105/50 97 06/04/19 09:11 55 L 16 99/56 97 06/04/19 08:56 56 L 16 109/53 98 06/04/19 08:41 96.2 F L 68 16 108/52 98 Intake and Output 06/04/19 06/05/19 06/05/19 22:59 06:59 14:59 Output Total 325 750 Balance -325 -750 Output: Urine 325 750 Straight 325 Other: Voiding Method Indwelling Catheter - Exam Extremities: Present: normal. Absent: tenderness Abdomen: Present: normal appearance, soft (Positive bowel sounds 4). Absent: distention, tenderness Incision: Present: normal, dry, intact. Absent: erythematous Uterus: Present: normal, firm. Absent: tenderness - Labs Labs: Abnormal Lab Results - Last 24 Hours (Table) 06/05/19 Range/Units 07:35 RBC 3.65 L (3.80-5.40) m/uL Hgb 11.1 L (11.4-16.0) gm/dL Hct 32.9 L (34.0-46.0) % Assessment and Plan Assessment: Status post repeat section postoperative day #1 (1) 39 weeks gestation of Current Visit: No Status: Acute Code(s): Z3A.39 - 39 WEEKS GESTATION OF SNOMED Code(s): 83903536 (2) Previous delivery affecting Current Visit: No Status: Acute Code(s): O34.219 - MATERNAL CARE FOR UNSP TYPE SCAR FROM PREVIOUS DEL SNOMED Code(s): 868250542 Plan: Continue with postoperative and care today. Anticipate possible discharge home tomorrow. Advance diet as tolerated.
[2019-06-05] MEDS: KETOROLAC 30 MG/ML 1 ML VIAL IVP PRN (08:45)
[2019-06-05] MEDS: FAMOTIDINE 20 MG TAB PO SCH (08:46)
[2019-06-05] MEDS: SENNOSIDES-DOCUSATE SODIUM 1 EACH TAB PO SCH ×2 (08:47→19:24)
[2019-06-05] MEDS: SIMETHICONE 80 MG CHEWABLE PO PRN (08:47)
[2019-06-05] MEDS: ACYCLOVIR 200 MG CAP PO SCH ×2 (08:47→20:02)
--- NOTE | 2019-06-05 09:14 | P.PN ---
Progress Note - Text 06/05 726am 24-year-old female status post with a spinal anesthetic, patient has Duramorph for postop pain control, patient has a VAS of 6 with complaints of pruritus which is getting better. Patient to follow-up with OB doctor for postop pain control
[2019-06-05] MEDS: HYDROcodone/APAP 7.5-325MG 1 EACH TAB PO PRN ×2 (12:31→18:00)
[2019-06-05] MEDS: IBUPROFEN 600 MG TAB PO PRN ×2 (15:56→21:01)
[2019-06-05] MEDS: LACTATED RINGERS 1,000 ML IV SCH ×2 (16:24→21:20)
[2019-06-06] MEDS: IBUPROFEN 600 MG TAB PO PRN ×4 (02:12→20:12)
[2019-06-06] MEDS: HYDROcodone/APAP 7.5-325MG 1 EACH TAB PO PRN ×4 (04:56→22:06)
--- NOTE | 2019-06-06 08:41 | P.PNOBGPC ---
Subjective - Subjective Principal diagnosis: Status post repeat section postoperative day #2 Interval history: Patient is complaining of more pain on her incision more towards the right side. She states it's a burning sensation. Her pain medications do not seem to help very much. She is alternating between ibuprofen and [place]. She is ambulating and passing flatus and bowel movement. She is urinating without difficulty. Patient reports: Reports appetite normal, Reports voiding normally, Reports pain poorly controlled, Reports ambulating normally [place]: doing well, nursing well Objective - Vital Signs Latest vital signs: Vital Signs Temp Pulse Resp BP Pulse Ox 06/05/19 23:15 97.9 F 63 18 108/68 98 06/05/19 16:00 98.4 F 67 16 117/71 94 L 06/05/19 14:00 20 06/05/19 12:00 20 06/05/19 10:00 20 Intake and Output 06/05/19 06/06/19 06/06/19 22:59 06:59 14:59 Other: Voiding Method Toilet - Exam Extremities: Present: normal Abdomen: Present: normal appearance, soft (Positive bowel sounds 4). Absent: distention, tenderness Incision: Present: normal, dry, intact. Absent: erythematous Uterus: Present: normal, firm. Absent: tenderness Assessment and Plan Assessment: Status post repeat section postoperative day #2 (1) 39 weeks gestation of Current Visit: No Status: Acute Code(s): Z3A.39 - 39 WEEKS GESTATION OF SNOMED Code(s): 84038361 (2) Previous delivery affecting Current Visit: No Status: Acute Code(s): O34.219 - MATERNAL CARE FOR UNSP TYPE SCAR FROM PREVIOUS DEL SNOMED Code(s): 234037892 Plan: Patient encouraged to try ice packs on her incision. She is also encouraged to continue alternating between ibuprofen and [place] 7.5 so that she is taking something every 3 hours. I offered to switch from [place] to Tylenol No. 3, however patient would like to stick with the [place] right now. Will not discharge at this time due to pain issues.
[2019-06-06] MEDS: SENNOSIDES-DOCUSATE SODIUM 1 EACH TAB PO SCH ×2 (09:16→19:30)
[2019-06-06] MEDS: ACYCLOVIR 200 MG CAP PO SCH ×2 (09:29→20:13)
[2019-06-06] MEDS: SIMETHICONE 80 MG CHEWABLE PO PRN (22:06)
[2019-06-07] MEDS: IBUPROFEN 600 MG TAB PO PRN ×3 (01:16→13:14)
[2019-06-07] MEDS: HYDROcodone/APAP 7.5-325MG 1 EACH TAB PO PRN ×2 (04:14→10:30)
[2019-06-07] MEDS: FAMOTIDINE 20 MG TAB PO SCH (04:44)
--- NOTE | 2019-06-07 07:21 | P.DS ---
Providers Date of admission: 06/04/19 05:55 Expected date of discharge: 06/07/19 Attending physician: Natalie Baumann Primary care physician: Stated None - Discharge Diagnosis(es) (1) 39 weeks gestation of Current Visit: No Status: Acute (2) Previous delivery affecting Current Visit: No Status: Acute Hospital Course: This is a 24-year-old female 2 para 1 at 39-5/7 weeks who presented for scheduled repeat section. She underwent a low transverse section under spinal Duramorph anesthesia and delivered a viable male with scores of 9 at 1 minute and 9 at 5 minutes and infant weight of 7 lbs. 3 oz. on 06/04/2019. Her postoperative course has been essentially uncomplicated. She did have some pain control issues on postoperative day 2 that have improved by postoperative day #3. She is alternating between [place] and ibuprofen. She has passed flatus and bowel movement and is urinating without difficulty. She is breast-feeding. Lochia is decreasing. Vital signs are stable. Abdomen is soft with fundus firm and nontender. Incision is clean dry and intact with oscar in place. Extremities show negative Hom[place]. Impression is status post repeat low transverse section postoperative day #3. Plan is to discharge home today. Oscar will be removed and Steri- Strips placed prior to discharge. Routine postoperative and instructions are given. She will be given a prescription for ibuprofen and [place]. She has signed a opioid start talking form and is counseled on appropriate opioid use. She is advised to follow-up in the office in 1 week for postoperative check and in 6 weeks for a check. She is also requested a prescription for a bedside commode due to the fact her toilet is very low. She also has been given a prescription for a breast pump. She is advised to call the office if she has any further questions or concerns prior to her appointment time. Procedures: Repeat low transverse section on 06/04/2019 Patient Condition at Discharge: Stable Plan - Discharge Summary Discharge Rx Participant: No New Discharge Prescriptions: New Ibuprofen [Motrin] 600 mg PO Q6HR PRN #60 tab PRN Reason: Mild Pain Or Fever >= 100.5 HYDROcodone/APAP 7.5-325MG [[place] 7.5-325] 1 each PO Q6H PRN #28 tab PRN Reason: Severe Pain Continue Ranitidine HCl [Zantac] 150 mg PO HS Pnv,Calcium 72/Iron/Folic Acid [ Plus Tablet] 1 each PO DAILY MDD 1 Acyclovir [Zovirax] 400 mg PO BID Discharge Medication List Pnv,Calcium 72/Iron/Folic Acid [ Plus Tablet] 1 each PO DAILY MDD 1 03/26/19 [History] Ranitidine HCl [Zantac] 150 mg PO HS 03/26/19 [History] Acyclovir [Zovirax] 400 mg PO BID 05/28/19 [History] HYDROcodone/APAP 7.5-325MG [[place] 7.5-325] 1 each PO Q6H PRN #28 tab 06/07/19 [Rx] Ibuprofen [Motrin] 600 mg PO Q6HR PRN #60 tab 06/07/19 [Rx] Follow up Appointment(s)/Referral(s): Natalie Baumann DO [Doctor of Osteopathic Medicine] - 1 Week Activity/Diet/Wound Care/Special Instructions: Instructions 1. Do not begin any exercise program for 3 weeks. 2. Do not resume sexual relations for 3 weeks or longer if uncomfortable. 3. You may take tub baths or showers at any time. 4. You may use tampons if desired after 3 weeks. 5. Keep the area of episiotomy (stitches) clean and dry. 6. If you are not nursing, wear a good fitting, supportive bra during the day and limit fluid intake for at least 1 week to prevent breast engorgement. 7. Call the office, [phone], within the next week to make appointment for your 6 week checkup if it has not already been made. 8. Report any of the following occurrences to the doctor promptly: a. Heavy, excessive bleeding b. Chills, fever c. Burning or frequency of urination d. Pain or redness and breasts if nursing e. Increasing pain or swelling in episiotomy (stitches). In addition to the above instructions, the following additional should be followed: 1. No heavy lifting or straining (exercising) until after 6 week checkup. 2. Keep abdominal incision clean and dry: You may wear a dressing if more comfortable. 3. Make office appointment for 10 days after going home or as instructed by her doctor. Discharge Disposition: HOME SELF-CARE
[2019-06-07 07:45] VITALS: BP 117/54; PULSE 64; RESP 16; TEMP 98.4
[2019-06-07] MEDS: SENNOSIDES-DOCUSATE SODIUM 1 EACH TAB PO SCH (07:50)
[2019-06-07] MEDS: ACYCLOVIR 200 MG CAP PO SCH (07:50)
[2019-06-07] MEDS: SIMETHICONE 80 MG CHEWABLE PO PRN (07:50)
== END 2019-06-07 14:50 | disposition home or self-care (01) | DRG 787 ==
LOC: 4FBP 05:55
PROVIDERS: ADMIT Obstetrics & Gynecology; ATTEND Obstetrics & Gynecology
PROC: 3E0134Z Introduction of Serum, Toxoid and Vaccine into Subcutaneous Tissue, Percutaneous Approach (ICD-10-PCS; 2019-06-04)
PROC: 10D00Z1 Extraction of Products of Conception, Low, Open Approach (ICD-10-PCS; principal; 2019-06-04 08:00)
DX: O34.211 Maternal care for low transverse scar from previous cesarean delivery (principal); O98.32 Other infections with a predominantly sexual mode of transmission complicating childbirth; A60.04 Herpesviral vulvovaginitis; N85.8 Other specified noninflammatory disorders of uterus; Z3A.39 39 weeks gestation of pregnancy; Z37.0 Single live birth; Z23 Encounter for immunization; K21.9 Gastro-esophageal reflux disease without esophagitis; L29.9 Pruritus, unspecified; Z79.899 Other long term (current) drug therapy; Z87.891 Personal history of nicotine dependence; Z88.2 Allergy status to sulfonamides
CPT/HCPCS: 85025; 86850; 86900; 86901; 90707

== ENCOUNTER 2019-06-22 06:06 | Emergency (ER) | payer OTHER ==
[2019-06-22 06:14] VITALS: BP 107/72; PULSE 56; RESP 24; TEMP 97.9
--- NOTE | 2019-06-22 06:47 | ED ---
General Adult HPI - General Chief complaint: Upper Respiratory Infection Stated complaint: pain in lungs Time Seen by Provider: 06/22/19 06:18 Source: patient, family, RN notes reviewed Mode of arrival: ambulatory Limitations: no limitations - History of Present Illness Initial comments: This is a 24-year-old female presents emergency Department chief complaint of pain in her lungs, back region. Patient states that it started yesterday states that it was so intense that she was vomiting. She has no complaints of cough and cold-like symptoms. Patient states that she is 2 weeks states that she was supposed to be using incentive spirometer states that she has not been. Patient does admit that she had a which was uncomplicated. Patient denies any prior cardiac any known lung disease denies being a smoker. Patient does not take any current medications. No fevers chills - Related Data Home Medications Medication Instructions Recorded Confirmed Pnv,Calcium 72/Iron/Folic Acid 1 each PO DAILY MDD 1 03/26/19 05/28/19 [ Plus Tablet] Ranitidine HCl [Zantac] 150 mg PO HS 03/26/19 06/04/19 Acyclovir [Zovirax] 400 mg PO BID 05/28/19 05/28/19 Previous Rx's Medication Instructions Recorded HYDROcodone/APAP 7.5-325MG [[place] 1 each PO Q6H PRN #28 tab 06/07/19 7.5-325] Ibuprofen [Motrin] 600 mg PO Q6HR PRN #60 tab 06/07/19 Cephalexin [Keflex] 500 mg PO Q6HR #28 cap 06/22/19 Ibuprofen [Motrin] 600 mg PO Q8HR PRN #20 tab 06/22/19 Allergies Allergy/AdvReac Type Severity Reaction Status Date / Time sulfamethoxazole Allergy Rash/Hives Verified 06/22/19 06:14 [From Bactrim] trimethoprim [From Bactrim] Allergy Rash/Hives Verified 06/22/19 06:14 Review of Systems ROS Statement: Those systems with pertinent positive or pertinent negative responses have been documented in the HPI. ROS Other: All systems not noted in ROS Statement are negative. Past Medical History Past Medical History: GERD/Reflux Additional Past Medical History / Comment(s): herpes History of Any Multi-Drug Resistant Organisms: None Reported Past Surgical History: Section, Ear Surgery Past Anesthesia/Blood Transfusion Reactions: No Reported Reaction Additional Past Anesthesia/Blood Transfusion Reaction / Comment(s): has never had anesthesia before Past Psychological History: Anxiety, Depression Smoking Status: Former smoker Past Alcohol Use History: None Reported Past Drug Use History: None Reported - Past Family History Mother Family Medical History: No Reported History General Exam Limitations: no limitations General appearance: alert, in no apparent distress Head exam: Present: atraumatic, normocephalic, normal inspection Eye exam: Present: normal appearance, PERRL, EOMI. Absent: scleral icterus, conjunctival injection, periorbital swelling ENT exam: Present: normal exam, mucous membranes moist Neck exam: Present: normal inspection. Absent: tenderness, meningismus, lymphadenopathy Respiratory exam: Present: normal lung sounds bilaterally. Absent: respiratory distress, wheezes, rales, rhonchi, stridor, chest wall tenderness Cardiovascular Exam: Present: regular rate, normal rhythm, normal heart sounds. Absent: systolic murmur, diastolic murmur, rubs, gallop, clicks GI/Abdominal exam: Present: soft, tenderness (Mild lower), normal bowel sounds. Absent: distended, guarding, rebound, rigid Course Vital Signs 06/22/19 06:11 Temperature 97.9 F Pulse Rate 56 L Respiratory 24 Rate Blood Pressure 107/72 O2 Sat by Pulse 97 Oximetry EKG Findings - EKG Comments: EKG Findings:: EKG performed at 6:40 sinus bradycardia with a rate of 48. MA interval 166 QRS 100 QT/QTC 366 Medical Decision Making - Medical Decision Making Patient had full workup including chest x-ray, labs, urinalysis and EKG. Patient has evidence of urinary tract infection concerning for pyelonephritis secondary to back pain. Patient does have pleuritic chest pain d-dimer is negative for acute she unremarkable. This may related to costochondritis, versus pleurisy. Patient we discharged with anti-inflammatories and antibiotics return parameters were discussed. - Lab Data Result diagrams: 06/22/19 06:39 06/22/19 06:39 Lab Results 06/22/19 06/22/19 06/22/19 Range/Units 06:39 06:39 06:39 WBC 8.5 (3.8-10.6) k/uL RBC 4.52 (3.80-5.40) m/uL Hgb 13.6 (11.4-16.0) gm/dL Hct 41.0 (34.0-46.0) % MCV 90.8 (80.0-100.0) fL MCH 30.2 (25.0-35.0) pg MCHC 33.3 (31.0-37.0) g/dL RDW 12.8 (11.5-15.5) % Plt Count 255 (150-450) k/uL Neutrophils % 65 % Lymphocytes % 26 % Monocytes % 3 % Eosinophils % 3 % Basophils % 0 % Neutrophils # 5.6 (1.3-7.7) k/uL Lymphocytes # 2.2 (1.0-4.8) k/uL Monocytes # 0.3 (0-1.0) k/uL Eosinophils # 0.3 (0-0.7) k/uL Basophils # 0.0 (0-0.2) k/uL D-Dimer 0.48 (<0.60) mg/L FEU Sodium 140 (137-145) mmol/L Potassium 4.0 (3.5-5.1) mmol/L Chloride 108 H (98-107) mmol/L Carbon Dioxide 23 (22-30) mmol/L Anion Gap 9 mmol/L BUN 15 (7-17) mg/dL Creatinine 0.70 (0.52-1.04) mg/dL Est GFR (CKD-EPI)AfAm >90 (>60 ml/min/1.73 sqM) Est GFR (CKD-EPI)NonAf >90 (>60 ml/min/1.73 sqM) Glucose 92 (74-99) mg/dL Calcium 10.3 H (8.4-10.2) mg/dL Magnesium 1.9 (1.6-2.3) mg/dL Total Bilirubin 0.3 (0.2-1.3) mg/dL AST 27 (14-36) U/L ALT 47 H (4-34) U/L Alkaline Phosphatase 82 (38-126) U/L Troponin I (0.000-0.034) ng/mL Total Protein 6.9 (6.3-8.2) g/dL Albumin 3.8 (3.5-5.0) g/dL Lipase 59 (23-300) U/L Urine Color Urine Appearance (Clear) Urine pH (5.0-8.0) Ur Specific [place] (1.001-1.035) Urine Protein (Negative) Urine Glucose (UA) (Negative) Urine Ketones (Negative) Urine Blood (Negative) Urine Nitrite (Negative) Urine Bilirubin (Negative) Urine Urobilinogen (<2.0) mg/dL Ur Leukocyte Esterase (Negative) Urine RBC (0-5) /hpf Urine WBC (0-5) /hpf Urine Bacteria (None) /hpf Urine Mucus (None) /hpf 06/22/19 06/22/19 Range/Units 06:39 07:35 WBC (3.8-10.6) k/uL RBC (3.80-5.40) m/uL Hgb (11.4-16.0) gm/dL Hct (34.0-46.0) % MCV (80.0-100.0) fL MCH (25.0-35.0) pg MCHC (31.0-37.0) g/dL RDW (11.5-15.5) % Plt Count (150-450) k/uL Neutrophils % % Lymphocytes % % Monocytes % % Eosinophils % % Basophils % % Neutrophils # (1.3-7.7) k/uL Lymphocytes # (1.0-4.8) k/uL Monocytes # (0-1.0) k/uL Eosinophils # (0-0.7) k/uL Basophils # (0-0.2) k/uL D-Dimer (<0.60) mg/L FEU Sodium (137-145) mmol/L Potassium (3.5-5.1) mmol/L Chloride (98-107) mmol/L Carbon Dioxide (22-30) mmol/L Anion Gap mmol/L BUN (7-17) mg/dL Creatinine (0.52-1.04) mg/dL Est GFR (CKD-EPI)AfAm (>60 ml/min/1.73 sqM) Est GFR (CKD-EPI)NonAf (>60 ml/min/1.73 sqM) Glucose (74-99) mg/dL Calcium (8.4-10.2) mg/dL Magnesium (1.6-2.3) mg/dL Total Bilirubin (0.2-1.3) mg/dL AST (14-36) U/L ALT (4-34) U/L Alkaline Phosphatase (38-126) U/L Troponin I <0.012 (0.000-0.034) ng/mL Total Protein (6.3-8.2) g/dL Albumin (3.5-5.0) g/dL Lipase (23-300) U/L Urine Color Yellow Urine Appearance Clear (Clear) Urine pH 5.5 (5.0-8.0) Ur Specific [place] 1.017 (1.001-1.035) Urine Protein Negative (Negative) Urine Glucose (UA) Negative (Negative) Urine Ketones Negative (Negative) Urine Blood Small H (Negative) Urine Nitrite Negative (Negative) Urine Bilirubin Negative (Negative) Urine Urobilinogen <2.0 (<2.0) mg/dL Ur Leukocyte Esterase Large H (Negative) Urine RBC 1 (0-5) /hpf Urine WBC 17 H (0-5) /hpf Urine Bacteria Rare H (None) /hpf Urine Mucus Rare H (None) /hpf Disposition Clinical Impression: Pleurisy, Pyelonephritis Disposition: HOME SELF-CARE Condition: Stable Instructions (If sedation given, give patient instructions): Kidney Infection (ED) Additional Instructions: Please return to the Emergency Department if symptoms worsen or any other concerns. Prescriptions: Cephalexin [Keflex] 500 mg PO Q6HR #28 cap Ibuprofen [Motrin] 600 mg PO Q8HR PRN #20 tab PRN Reason: Pain Is patient prescribed a controlled substance at d/c from ED?: No Referrals: Chavo Burch DO [Primary Care Provider] - 1-2 days Time of Disposition: 08:28
[2019-06-22 06:54] LABS: Basophils % (A) 0 %; Eosinophils # (A) 0.3 k/uL (0-0.7); Eosinophils % (A) 3 %; HGB 13.6 gm/dL (11.4-16.0); Lymphocytes # (A) 2.2 k/uL (1.0-4.8); Lymphocytes % (A) 26 %; MCH 30.2 pg (25.0-35.0); MCHC 33.3 g/dL (31.0-37.0); MCV 90.8 fL (80.0-100.0); Mean Platelet Volume 7.7; Monocytes # (A) 0.3 k/uL (0-1.0); Monocytes % (A) 3 %; Neutrophils # (A) 5.6 k/uL (1.3-7.7); Neutrophils % (A) 65 %; Platelet Count 255 k/uL (150-450); RBC 4.52 m/uL (3.80-5.40); RDW 12.8 % (11.5-15.5); WBC 8.5 k/uL (3.8-10.6)
[2019-06-22 07:07] LABS: ALT 47 U/L (4-34); AST 27 U/L (14-36); African American GFR (CKD) >90 (>60 ml/min/1.73 sqM); Albumin 3.8 g/dL (3.5-5.0); Anion Gap 9 mmol/L; Blood Urea Nitrogen 15 mg/dL (7-17); Calcium 10.3 mg/dL (8.4-10.2); Carbon Dioxide 23 mmol/L (22-30); Chloride 108 mmol/L (98-107); Glucose 92 mg/dL (74-99); Magnesium 1.9 mg/dL (1.6-2.3); Non-African American GFR(CKD) >90 (>60 ml/min/1.73 sqM); Sodium 140 mmol/L (137-145); Total Bilirubin 0.3 mg/dL (0.2-1.3); Total Protein 6.9 g/dL (6.3-8.2)
[2019-06-22 07:08] LABS: Alkaline Phosphatase 82 U/L (38-126)
--- NOTE | 2019-06-22 07:13 | XR ---
EXAMINATION TYPE: XR chest 2V DATE OF EXAM: 06/22/2019 HISTORY: Chest Pain. REFERENCE: Previous study dated 12/12/2014. FINDINGS: The lungs remain clear. Pleural space are clear. Heart is not enlarged. IMPRESSION: NO ACTIVE CARDIOPULMONARY ABNORMALITY.
[2019-06-22 08:13] LABS: Appearance,Urine Clear (Clear); Bacteria,Urine Rare /hpf; Bilirubin,Urine Negative (Negative); Blood,Urine Small (Negative); Color,Urine Yellow; Glucose,Urine (UA) Negative (Negative); Ketones,Urine Negative (Negative); Leukocyte Esterase,Urine Large (Negative); Mucus,Urine Rare /hpf; Nitrite,Urine Negative (Negative); PH, Urine 5.5 (5.0-8.0); Protein,Urine Negative (Negative); RBC,Urine 1 /hpf (0-5); Specific Gravity,Urine 1.017 (1.001-1.035); Urobilinogen,Urine <2.0 mg/dL (<2.0); WBC,Urine 17 /hpf (0-5)
[2019-06-22] MEDS ORDERED: cefTRIAXone IN SWFI 1,000 MG/10 ML SYRINGE IVP STA (08:26)
== END 2019-06-22 08:49 | disposition home or self-care (01) ==
LOC: EC 06:06
DX: O86.21 Infection of kidney following delivery (principal); O90.89 Other complications of the puerperium, not elsewhere classified; R09.1 Pleurisy; O99.63 Diseases of the digestive system complicating the puerperium; K21.9 Gastro-esophageal reflux disease without esophagitis; Z87.891 Personal history of nicotine dependence; Z88.2 Allergy status to sulfonamides; Z79.899 Other long term (current) drug therapy; Z86.19 Personal history of other infectious and parasitic diseases
CPT/HCPCS: 36415; 93005; 85379; 80053; 83690; 83735; 84484; 85025; 81001; 87086; 71046; 99283; 96374; J0696

== ENCOUNTER 2019-07-07 08:48 | Emergency (ER) | payer OTHER ==
[2019-07-07 09:04] VITALS: PULSE 70; RESP 18
[2019-07-07] MEDS ORDERED: KETOROLAC 60 MG/2 ML VIAL IVP STA (09:13)
[2019-07-07 09:24] LABS: Basophils % (A) 0 %; Eosinophils # (A) 0.2 k/uL (0-0.7); Eosinophils % (A) 3 %; HCT 41.3 % (34.0-46.0); HGB 13.4 gm/dL (11.4-16.0); Lymphocytes # (A) 2.1 k/uL (1.0-4.8); Lymphocytes % (A) 25 %; MCH 28.8 pg (25.0-35.0); MCHC 32.5 g/dL (31.0-37.0); MCV 88.8 fL (80.0-100.0); Mean Platelet Volume 7.4; Monocytes # (A) 0.3 k/uL (0-1.0); Monocytes % (A) 4 %; Neutrophils # (A) 5.6 k/uL (1.3-7.7); Neutrophils % (A) 67 %; Platelet Count 199 k/uL (150-450); RBC 4.65 m/uL (3.80-5.40); WBC 8.4 k/uL (3.8-10.6)
--- NOTE | 2019-07-07 09:24 | ED ---
General Adult HPI - General Chief complaint: Recheck/Abnormal Lab/Rx Stated complaint: Lung Pain Time Seen by Provider: 07/07/19 09:00 Source: patient, RN notes reviewed, old records reviewed Mode of arrival: ambulatory Limitations: no limitations - History of Present Illness Initial comments: This is a 24-year-old female who presents emergency Department who complains of thoracic back pain. Patient states it occurs when she wakes up and is happened multiple times and has not occurred for about 2 weeks. Patient states the pain is quite severe when it first happened and it eventually fades away over about an hour. Patient states by the time she arrives at the ER to be gone. Patient states currently it is barely there at all at this time. Patient denies any shortness of breath or difficulty breathing. Patient denies any chest pain. Patient denies any palpitations. - Related Data Home Medications Medication Instructions Recorded Confirmed Pnv,Calcium 72/Iron/Folic Acid 1 each PO DAILY MDD 1 03/26/19 05/28/19 [ Plus Tablet] Ranitidine HCl [Zantac] 150 mg PO HS 03/26/19 06/04/19 Acyclovir [Zovirax] 400 mg PO BID 05/28/19 05/28/19 Previous Rx's Medication Instructions Recorded HYDROcodone/APAP 7.5-325MG [[place] 1 each PO Q6H PRN #28 tab 06/07/19 7.5-325] Ibuprofen [Motrin] 600 mg PO Q6HR PRN #60 tab 06/07/19 Cephalexin [Keflex] 500 mg PO Q6HR #28 cap 06/22/19 Ibuprofen [Motrin] 600 mg PO Q8HR PRN #20 tab 06/22/19 Ibuprofen [Motrin] 600 mg PO Q6HR PRN #20 tab 07/07/19 Allergies Allergy/AdvReac Type Severity Reaction Status Date / Time sulfamethoxazole Allergy Rash/Hives Verified 07/07/19 08:56 [From Bactrim] trimethoprim [From Bactrim] Allergy Rash/Hives Verified 07/07/19 08:56 Review of Systems ROS Statement: Those systems with pertinent positive or pertinent negative responses have been documented in the HPI. ROS Other: All systems not noted in ROS Statement are negative. Past Medical History Past Medical History: GERD/Reflux Additional Past Medical History / Comment(s): herpes History of Any Multi-Drug Resistant Organisms: None Reported Past Surgical History: Section, Ear Surgery Past Anesthesia/Blood Transfusion Reactions: No Reported Reaction Additional Past Anesthesia/Blood Transfusion Reaction / Comment(s): has never had anesthesia before Past Psychological History: Anxiety, Depression Smoking Status: Former smoker Past Alcohol Use History: None Reported Past Drug Use History: None Reported - Past Family History Mother Family Medical History: No Reported History General Exam - General Exam Comments Initial Comments: GENERAL: Patient is well-developed and well-nourished. Patient is nontoxic and well- hydrated and is in no acute distress. ENT: Neck is soft and supple. No significant lymphadenopathy is noted. Oropharynx is clear. Moist mucous membranes. Neck has full range of motion without eliciting any pain. EYES: The sclera were anicteric and conjunctiva were pink and moist. Extraocular movements were intact and pupils were equal round and reactive to light. Eyelids were unremarkable. PULMONARY: Unlabored respirations. Good breath sounds bilaterally. No audible rales r honchi or wheezing was noted. CARDIOVASCULAR: There is a regular rate and rhythm without any murmurs gallops or rubs. ABDOMEN: Soft and nontender with normal bowel sounds. SKIN: Skin is clear with no lesions or rashes and otherwise unremarkable. NEUROLOGIC: Patient is alert and oriented x3. Cranial nerves II through XII are grossly intact. Motor and sensory are also intact. Normal speech, volume and content. Symmetrical smile. MUSCULOSKELETAL: Normal extremities with adequate strength and full range of motion. LYMPHATICS: No significant lymphadenopathy is noted PSYCHIATRIC: Normal psychiatric evaluation. Limitations: no limitations Course Vital Signs 07/07/19 08:56 Temperature 98.4 F Pulse Rate 70 Respiratory 18 Rate Blood Pressure 103/76 O2 Sat by Pulse 99 Oximetry Medical Decision Making - Medical Decision Making I will back and reevaluate the patient and she is pain-free at this time. - Lab Data Result diagrams: 07/07/19 09:10 07/07/19 09:10 Lab Results 07/07/19 07/07/19 07/07/19 Range/Units 09:05 09:10 09:10 WBC 8.4 (3.8-10.6) k/uL RBC 4.65 (3.80-5.40) m/uL Hgb 13.4 (11.4-16.0) gm/dL Hct 41.3 (34.0-46.0) % MCV 88.8 (80.0-100.0) fL MCH 28.8 (25.0-35.0) pg MCHC 32.5 (31.0-37.0) g/dL RDW 13.0 (11.5-15.5) % Plt Count 199 (150-450) k/uL Neutrophils % 67 % Lymphocytes % 25 % Monocytes % 4 % Eosinophils % 3 % Basophils % 0 % Neutrophils # 5.6 (1.3-7.7) k/uL Lymphocytes # 2.1 (1.0-4.8) k/uL Monocytes # 0.3 (0-1.0) k/uL Eosinophils # 0.2 (0-0.7) k/uL Basophils # 0.0 (0-0.2) k/uL Sodium 140 (137-145) mmol/L Potassium 4.2 (3.5-5.1) mmol/L Chloride 107 (98-107) mmol/L Carbon Dioxide 25 (22-30) mmol/L Anion Gap 8 mmol/L BUN 19 H (7-17) mg/dL Creatinine 0.63 (0.52-1.04) mg/dL Est GFR (CKD-EPI)AfAm >90 (>60 ml/min/1.73 sqM) Est GFR (CKD-EPI)NonAf >90 (>60 ml/min/1.73 sqM) Glucose 98 (74-99) mg/dL Calcium 10.1 (8.4-10.2) mg/dL Total Bilirubin 0.3 (0.2-1.3) mg/dL AST 41 H (14-36) U/L ALT 54 H (4-34) U/L Alkaline Phosphatase 64 (38-126) U/L Total Protein 7.0 (6.3-8.2) g/dL Albumin 3.8 (3.5-5.0) g/dL Urine Color Yellow Urine Appearance Clear (Clear) Urine pH 6.0 (5.0-8.0) Ur Specific Dalton 1.025 (1.001-1.035) Urine Protein Negative (Negative) Urine Glucose (UA) Negative (Negative) Urine Ketones Negative (Negative) Urine Blood Negative (Negative) Urine Nitrite Negative (Negative) Urine Bilirubin Negative (Negative) Urine Urobilinogen <2.0 (<2.0) mg/dL Ur Leukocyte Esterase Trace H (Negative) Urine RBC 1 (0-5) /hpf Urine WBC 5 (0-5) /hpf Ur Squamous Epith Cells <1 (0-4) /hpf Hyaline Casts 1 (0-2) /lpf Urine Mucus Rare H (None) /hpf Disposition Clinical Impression: Thoracic back pain Disposition: HOME SELF-CARE Condition: Good Instructions (If sedation given, give patient instructions): Back Pain (ED) Prescriptions: Ibuprofen [Motrin] 600 mg PO Q6HR PRN #20 tab PRN Reason: For pain Is patient prescribed a controlled substance at d/c from ED?: No Referrals: Chavo Burch DO [Primary Care Provider] - 1-2 days Time of Disposition: 09:56
[2019-07-07 09:34] LABS: ALT 54 U/L (4-34); AST 41 U/L (14-36); African American GFR (CKD) >90 (>60 ml/min/1.73 sqM); Albumin 3.8 g/dL (3.5-5.0); Alkaline Phosphatase 64 U/L (38-126); Anion Gap 8 mmol/L; Blood Urea Nitrogen 19 mg/dL (7-17); Calcium 10.1 mg/dL (8.4-10.2); Carbon Dioxide 25 mmol/L (22-30); Chloride 107 mmol/L (98-107); Glucose 98 mg/dL (74-99); Non-African American GFR(CKD) >90 (>60 ml/min/1.73 sqM); Potassium 4.2 mmol/L (3.5-5.1); Sodium 140 mmol/L (137-145); Total Bilirubin 0.3 mg/dL (0.2-1.3)
[2019-07-07 09:40] LABS: Appearance,Urine Clear (Clear); Bilirubin,Urine Negative (Negative); Blood,Urine Negative (Negative); Color,Urine Yellow; Glucose,Urine (UA) Negative (Negative); Hyaline Casts,Urine 1 /lpf (0-2); Ketones,Urine Negative (Negative); Leukocyte Esterase,Urine Trace (Negative); Mucus,Urine Rare /hpf; Nitrite,Urine Negative (Negative); Protein,Urine Negative (Negative); RBC,Urine 1 /hpf (0-5); Specific Gravity,Urine 1.025 (1.001-1.035); Squamous Epithelial Cell,Urine <1 /hpf (0-4); Urobilinogen,Urine <2.0 mg/dL (<2.0); WBC,Urine 5 /hpf (0-5)
[2019-07-07 10:22] VITALS: BP 101/60; TEMP 98.3
== END 2019-07-07 10:10 | disposition home or self-care (01) ==
LOC: EC 08:48
DX: M54.6 Pain in thoracic spine (principal); K21.9 Gastro-esophageal reflux disease without esophagitis; Z87.891 Personal history of nicotine dependence; Z88.2 Allergy status to sulfonamides; Z79.899 Other long term (current) drug therapy; Z86.19 Personal history of other infectious and parasitic diseases
CPT/HCPCS: 36415; 80053; 85025; 81001; 99284; 96374; J1885

== ENCOUNTER → 2019-07-19 | Outpatient (CLI) | payer OTHER ==
--- NOTE | 2019-07-19 09:30 | US ---
EXAMINATION TYPE: US gallbladder DATE OF EXAM: 07/19/2019 COMPARISON: NONE CLINICAL HISTORY: R19.8 symptoms/signs involving digestive syst/abd. Pain and vomiting for 1 month. EXAM MEASUREMENTS: Liver Length: 17.5 cm Gallbladder Wall: .5 cm CBD: .5 cm Right Kidney: 11.4 x 4.1 x 4.5 cm Pancreas: wnl Liver: wnl Gallbladder: Multiple gallstones seen wall echo shadow sign. Evidence for sonographic Casas's sign: No CBD: wnl Right Kidney: wnl IMPRESSION: Numerous gallstones seen filling the gallbladder creating the wall echo shadow sign. Mills petra no sonographic evidence of acute cholecystitis is present on the examination.
== END | disposition home or self-care (01) ==
LOC: RADUSWWP 08:22
PROVIDERS: ATTEND Family Medicine
DX: K80.20 Calculus of gallbladder without cholecystitis without obstruction (principal)
CPT/HCPCS: 76705

== ENCOUNTER 2019-07-26 08:53 | Emergency (ER) | payer OTHER ==
[2019-07-26] MEDS ORDERED: IBUPROFEN 600 MG TAB PO STA (09:25)
[2019-07-26] MEDS ORDERED: ACETAMINOPHEN TAB 500 MG TAB PO STA (09:25)
[2019-07-26] MEDS ORDERED: OSELTAMIVIR 75 MG CAP PO STA (09:54)
--- NOTE | 2019-07-26 10:04 | ED ---
General Adult HPI - General Chief complaint: Upper Respiratory Infection Stated complaint: cough, chills, headache Time Seen by Provider: 07/26/19 09:23 Source: patient, RN notes reviewed, old records reviewed Mode of arrival: ambulatory Limitations: no limitations - History of Present Illness Initial comments: 24-year-old female presents today for treatment of cough congestion and fevers times one day. Her significant other was diagnosed with influenza. She brings her 1 month-old child in for evaulation as well. Patient denies taking any Motrin Tylenol. Denies any other significant complaints. - Related Data Home Medications Medication Instructions Recorded Confirmed Docusate [Colace] 100 mg PO DAILY 07/26/19 07/26/19 L.acidoph,Paracasei, B.lactis 1 cap PO DAILY 07/26/19 07/26/19 [Probiotic] Simethicone [Gas-X] 62.5 mg PO BID 07/26/19 07/26/19 Previous Rx's Medication Instructions Recorded Acetaminophen Tab [Tylenol Tab] 650 mg PO Q4H #20 tablet 07/26/19 Oseltamivir [Tamiflu] 75 mg PO Q12HR #10 cap 07/26/19 Allergies Allergy/AdvReac Type Severity Reaction Status Date / Time sulfamethoxazole Allergy Rash/Hives Verified 07/26/19 11:20 [From Bactrim] trimethoprim [From Bactrim] Allergy Rash/Hives Verified 07/26/19 11:20 Review of Systems ROS Statement: Those systems with pertinent positive or pertinent negative responses have been documented in the HPI. ROS Other: All systems not noted in ROS Statement are negative. Past Medical History Past Medical History: GERD/Reflux Additional Past Medical History / Comment(s): herpes History of Any Multi-Drug Resistant Organisms: None Reported Past Surgical History: Section, Ear Surgery Past Anesthesia/Blood Transfusion Reactions: No Reported Reaction Additional Past Anesthesia/Blood Transfusion Reaction / Comment(s): has never had anesthesia before Past Psychological History: Anxiety, Depression Smoking Status: Former smoker Past Alcohol Use History: None Reported Past Drug Use History: None Reported - Past Family History Mother Family Medical History: No Reported History General Exam - General Exam Comments Initial Comments: 24-year-old female. Alert and oriented 3. Patient is a fever of 101. Limitations: no limitations General appearance: alert, in no apparent distress Head exam: Present: atraumatic, normocephalic, normal inspection Eye exam: Present: normal appearance, PERRL, EOMI. Absent: scleral icterus, conjunctival injection, periorbital swelling ENT exam: Present: normal exam, mucous membranes moist Neck exam: Present: normal inspection. Absent: tenderness, meningismus, lymphadenopathy Respiratory exam: Present: normal lung sounds bilaterally. Absent: respiratory distress, wheezes, rales, rhonchi, stridor Cardiovascular Exam: Present: regular rate, normal rhythm, normal heart sounds. Absent: systolic murmur, diastolic murmur, rubs, gallop, clicks GI/Abdominal exam: Present: soft, normal bowel sounds. Absent: distended, tenderness, guarding, rebound, rigid Extremities exam: Present: normal inspection, full ROM, normal capillary refill. Absent: tenderness, pedal edema, joint swelling, calf tenderness Back exam: Present: normal inspection Neurological exam: Present: alert, oriented X3, CN II-XII intact Psychiatric exam: Present: normal affect, normal mood Skin exam: Present: warm, dry, intact, normal color. Absent: rash Course Vital Signs 07/26/19 07/26/19 07/26/19 08:57 08:59 09:59 Temperature 101.1 F H 100.4 F H Pulse Rate 71 98 Respiratory 18 20 20 Rate Blood Pressure 97/45 104/62 O2 Sat by Pulse 100 96 Oximetry 07/26/19 07/26/19 07/26/19 10:00 11:00 11:12 Temperature Pulse Rate 92 90 Respiratory 20 20 20 Rate Blood Pressure 107/62 106/65 O2 Sat by Pulse 96 96 Oximetry Medical Decision Making - Medical Decision Making 24 year old female with fever and body aches for one day. Patient has been given motrin and tylenol. She has no wheezing and no signs of respiratory distress. She is positive for influenza. Disucssed treatment with tamiflu and symptomatic measures. Return parameters discussed. - Lab Data Lab Results 07/26/19 Range/Units 09:48 Influenza Type A RNA Not Detected (Not Detectd) Influenza Type B (PCR) Detected H (Not Detectd) Disposition Clinical Impression: Influenza Disposition: HOME SELF-CARE Condition: Good Instructions (If sedation given, give patient instructions): Influenza (ED) Additional Instructions: Please use medication as discussed. Please follow up with family doctor if symptoms have not improved over the next two days. Please return to the emergency room if your symptoms increase or worsen or for any other concerns. Prescriptions: Oseltamivir [Tamiflu] 75 mg PO Q12HR #10 cap Acetaminophen Tab [Tylenol Tab] 650 mg PO Q4H #20 tablet Is patient prescribed a controlled substance at d/c from ED?: No Referrals: Chavo Burch DO [Primary Care Provider] - 1-2 days Time of Disposition: 10:59
[2019-07-26 10:23] VITALS: RESP 20
[2019-07-26 10:25] VITALS: TEMP 100.4
[2019-07-26 11:11] VITALS: BP 106/65; PULSE 90
== END 2019-07-26 11:13 | disposition home or self-care (01) ==
LOC: EC 08:53
DX: J11.1 Influenza due to unidentified influenza virus with other respiratory manifestations (principal); K21.9 Gastro-esophageal reflux disease without esophagitis; Z87.891 Personal history of nicotine dependence; Z88.2 Allergy status to sulfonamides; Z79.899 Other long term (current) drug therapy; Z86.19 Personal history of other infectious and parasitic diseases
CPT/HCPCS: 87502; 99284

== ENCOUNTER → 2019-08-14 | Outpatient (CLI) | payer OTHER ==
--- NOTE | 2019-08-14 09:22 | NM ---
EXAMINATION TYPE: NM hepatobiliary w EF DATE OF EXAM: 08/14/2019 COMPARISON: Gallbladder ultrasound dated 07/19/2019 HISTORY: Abdominal pain and cholelithiasis. TECHNIQUE: After the intravenous administration of 4.24 mCi Tc 99m Mebrofenin hepatobiliary scintigra phy is performed. Immediate images post injection. FINDINGS: There is satisfactory initial accumulation of tracer by the liver. The gallbladder is visualized wit hin 20 minutes. The small bowel activity is noted within minutes. At one hour 8 ounces of oral ensu re plus is given to mimic CCK and gallbladder ejection fraction is calculated at 85 %, elevated. The refore there is no scintigraphic evidence of cystic or common bile duct obstruction to suggest acute cholecystitis or gallbladder dyskinesia. IMPRESSION: Biliary hyperkinesia with elevated ejection fraction of 85%. No scintigraphic evidence of acute cholecystitis.
== END | disposition home or self-care (01) ==
LOC: RADNMMAIN 07:08
PROVIDERS: ATTEND Family Medicine
DX: K83.8 Other specified diseases of biliary tract (principal)
CPT/HCPCS: 78226; A9537

== ENCOUNTER → 2019-11-08 | Outpatient (CLI) | payer OTHER | END | disposition home or self-care (01) | LOC: LABWHC1 07:55 | PROVIDERS: ATTEND Surgery Plastic and Reconstructive Surgery | DX: U07.1 COVID-19 (principal) | CPT/HCPCS: 87635 ==

== ENCOUNTER 2020-02-28 06:50 | Day surgery (SDC) | payer OTHER ==
[2020-02-26 17:42] VITALS: BMI 36.0
[~2020-02-28 06:50] MED LIST: DEXAMETHASONE SOD PHOSPHATE 10 MG/ML 1 ML VIAL IV ONE; HEPARIN SODIUM,PORCINE 5,000 UNIT/ML 1 ML VIAL SQ ONE; HYDROmorphone 0.5 MG/0.5 ML SYRINGE IVP PRN; LACTATED RINGERS 1,000 ML IV SCH; LIDOCAINE 1% (10MG/ML) FOR IV START INTRADERMA PRN; MIDAZOLAM 2 MG/2 ML VIAL IV PRN; ONDANSETRON 4 MG/2 ML VIAL IVP ONE
[2020-02-28] MEDS ORDERED: ONDANSETRON 4 MG/2 ML VIAL ONE (07:19)
[2020-02-28] MEDS ORDERED: HEPARIN SODIUM,PORCINE 5,000 UNIT/ML 1 ML VIAL ONE (07:20)
[2020-02-28] MEDS ORDERED: MIDAZOLAM 2 MG/2 ML VIAL IV ONE ×2 (07:24→07:30)
[2020-02-28] MEDS ORDERED: NEOSTIGMINE 1 MG/ML 10 ML VIAL ONE (07:30)
[2020-02-28] MEDS ORDERED: GLYCOPYRROLATE 0.2 MG/ML 2 ML VIAL ONE (07:30)
[2020-02-28] MEDS ORDERED: SUCCINYLCHOLINE CHLORIDE 100 MG/5 ML SYR IV ONE (07:30)
[2020-02-28] MEDS ORDERED: LIDOCAINE 1% INJ 10MG/ML (20 ML MDV) ONE (07:30)
[2020-02-28] MEDS ORDERED: HYDROmorphone (PF) 1 MG/ML ONE (07:30)
[2020-02-28] MEDS ORDERED: KETOROLAC 15 MG/ML 1 ML VIAL ONE (07:30)
[2020-02-28] MEDS ORDERED: fentaNYL (PF) 50 MCG/ML 2 ML AMP ONE (07:30)
[2020-02-28] MEDS ORDERED: ROCURONIUM BROMIDE 10 MG/ML 5 ML VIAL IV ONE (07:30)
[2020-02-28] MEDS ORDERED: MIDAZOLAM 2 MG/2 ML VIAL ONE (07:30)
[2020-02-28] MEDS ORDERED: INDOCYANINE GREEN 25 MG VIAL IV STA (07:31)
[2020-02-28 07:32] LABS: Basophils % (A) 0 %; Eosinophils # (A) 0.1 k/uL (0-0.7); Eosinophils % (A) 2 %; HCT 40.8 % (34.0-46.0); HGB 13.3 gm/dL (11.4-16.0); Lymphocytes # (A) 1.6 k/uL (1.0-4.8); Lymphocytes % (A) 23 %; MCH 29.1 pg (25.0-35.0); MCHC 32.6 g/dL (31.0-37.0); MCV 89.3 fL (80.0-100.0); Mean Platelet Volume 7.5; Monocytes # (A) 0.3 k/uL (0-1.0); Monocytes % (A) 4 %; Neutrophils # (A) 4.8 k/uL (1.3-7.7); Neutrophils % (A) 69 %; Platelet Count 231 k/uL (150-450); RBC 4.57 m/uL (3.80-5.40); RDW 12.9 % (11.5-15.5); WBC 6.9 k/uL (3.8-10.6)
[2020-02-28] MEDS ORDERED: LIDOCAINE 1%-EPI 1:100,000 20 ML VIAL SQ ONE (07:32)
[2020-02-28] MEDS ORDERED: KETOROLAC 15 MG/ML 1 ML VIAL IVP PRN (07:34)
--- NOTE | 2020-02-28 07:34 | P.GSHP ---
History of Present Illness H&P Date: 02/28/20 CHIEF COMPLAINT: Cholecystitis HISTORY OF PRESENT ILLNESS: The patient is a 24-year-old female who presents with history of epigastric including right upper quadrant abdominal pain. She underwent diagnostic studies for her gallbladder. Separately her clinical picture was consistent with cholecystitis. Now she presents for surgical intervention. PAST MEDICAL HISTORY: Please see list PAST SURGICAL HISTORY: Please see list MEDICATIONS: Please see list ALLERGIES: Please see list SOCIAL HISTORY: Please see list FAMILY HISTORY: Please see list REVIEW OF ORGAN SYSTEMS: CONSTITUTIONAL: No reports of fevers or chills. HEENT: Denies any troubles with the vision or hearing. ENDOCRINE: No reports of hypothyroidism. No diabetes. RESPIRATORY: No recent pneumonias. CARDIOVASCULAR: Denies chest pain or palpitations GI: No blood in stools or constipation. MUSCULOSKELETAL: Has occasional joint pain including back pain. NEURO: No seizure disorders or headaches. No recent stroke. PSYCH: No depression or suicidal ideation. GENITOURINARY: No active blood in urine. No urinary hesitancy. HEMATOLOGIC: No personal or family history of DVTs or pulmonary emboli. SKIN: No skin cancer. PHYSICAL EXAM: VITAL SIGNS: Afebrile vital signs stable GENERAL: Well-developed pleasant in no acute distress. HEENT: No scleral icterus. Extraocular movements grossly intact. Moist buccal mucosa. NECK: Supple without lymphadenopathy. CHEST: Unlabored respirations. Equal bilateral excursions. CARDIOVASCULAR: Regular rate regular rhythm rhythm. Distal 2+ pulses. ABDOMEN: Soft, nondistended. Tender along the epigastrium and right upper quadrant. MUSCULOSKELETAL: No clubbing, cyanosis, or edema. NEURO: Cranial nerves II to XII within normal limits. No focal or lateralizing signs. PSYCH: Alert and oriented to person, place and time. SKIN: Well-perfused good skin turgor. ASSESSMENT: 1. Epigastric and right upper quadrant abdominal pain 2. Chronic cholecystitis 3. Symptomatic gallstones. PLAN: 1. Will need a robotic cholecystectomy possible open. Benefits and risks were described. 2. Heparin for DVT prophylaxis 5000 units. 3. Antibiotic prophylaxis. Past Medical History Past Medical History: GERD/Reflux Additional Past Medical History / Comment(s): Hx Genital herpes. Pain after eating in abd and back. History of Any Multi-Drug Resistant Organisms: None Reported Past Surgical History: Section, Ear Surgery Additional Past Surgical History / Comment(s): C-S x2. BMT Rt ear. Past Anesthesia/Blood Transfusion Reactions: Motion Sickness Additional Past Anesthesia/Blood Transfusion Reaction / Comment(s): has never had anesthesia before Smoking Status: Former smoker - Past Family History Mother Family Medical History: No Reported History Medications and Allergies Home Medications Medication Instructions Recorded Confirmed Type Omeprazole 40 mg PO DAILY PRN 09/18/19 02/28/20 History Multivitamins, Thera [Multivitamin 1 tab PO DAILY 02/26/20 02/28/20 History (formulary)] Norelgestromin/Ethin.estradiol 1 patch TRANSDERM Q7D 02/26/20 02/28/20 History [Xulane Patch] Phentermine HCl [Adipex-P] 37.5 mg PO DAILY 02/26/20 02/28/20 History Allergies Allergy/AdvReac Type Severity Reaction Status Date / Time adhesive tape Allergy Rash/Hives Verified 02/26/20 17:17 sulfamethoxazole Allergy Rash/Hives Verified 02/26/20 17:16 [From Bactrim] trimethoprim [From Bactrim] Allergy Rash/Hives Verified 02/26/20 17:16 Surgical - Exam Vital Signs Temp Pulse Resp BP Pulse Ox 97.3 F L 73 16 137/63 99 02/28/20 07:08 02/28/20 07:08 02/28/20 07:08 02/28/20 07:08 02/28/20 07:08 Results - Labs 02/28/20 07:13
[2020-02-28] MEDS ORDERED: ONDANSETRON 4 MG/2 ML VIAL IVP ONE (08:48)
[2020-02-28 08:52] VITALS: TEMP 98.6
--- NOTE | 2020-02-28 08:52 | P.OP ---
Date of Procedure: 02/28/20 Description of Procedure: SURGEON: SANTA PERRY MD PREOPERATIVE DIAGNOSES: 1. Chronic cholecystitis with symptomatic gallstone 2. Gastroesophageal reflux disease 3. Morbid obesity due to excess calories, BMI 38.0 POSTOPERATIVE DIAGNOSES: 1. Chronic cholecystitis with symptomatic gallstone 2. Gastroesophageal reflux disease 3. Morbid obesity due to excess calories, BMI 38.0 OPERATION: Robotic-assisted da Gus Xi laparoscopic cholecystectomy, multiport with FIREFLY ESTIMATED BLOOD LOSS: 5 mL. SPECIMENS REMOVED: Gallbladder. COMPLICATIONS: None. OPERATIVE FINDINGS: 1. Bilobed gallbladder with liver unremarkable INDICATIONS: The patient is a 24-year-old female who presents with epigastric right upper quadrant dull pain with gallbladder disorder. Robotic assisted laparoscopic approach was described. Benefits and risks of the procedure including but not limited to bleeding, infection, injury to the biliary tree was described. Informed consent was obtained. DESCRIPTION OF PROCEDURE: Patient was brought to the operating room, placed in supine position. After general induction, the abdomen had been prepped and draped in standard sterile fashion. The robotic da Gus XI system was primed. After a timeout protocol was performed, the patient had been prepped and draped in standard sterile fashion. The patient was injected with indocyanine green. A 5 mm 0 degrees laparoscopic trocar entry was performed along the left upper quadrant. The abdomen insufflated to 15 mmHg pressure which was tolerated well. Diagnostic laparoscopy demonstrated no injury to bowel viscera or mesentery. The liver surface was unremarkable. Next, two 8 mm robotic ports were placed along the right upper abdomen. The camera 8-mm port was maintained along the epigastrium. Another 8 mm port was placed along the left upper abdominal wall after exchanging the 5 mm port. Please note that the ports were placed at least 10 to 15 cm away from the target anatomy of the gallbladder. The robot was docked along the left lateral abdomen. The patient was repositioned in reverse Trendelenburg position. Using a grasper for arm 3, a grasper for arm 4, including hook cautery for arm 1, the robotic system was docked and primed as described. Instruments were interchanged by the virtual assistant including hook cautery, Bovie cautery and clip appliers. I had sat at the console. The gallbladder fundus was retracted over the dome of the liver. Initial attention was brought to the infundibulum including cystic lymph node. Initial dissection was performed over the cystic lymph node at the infundibulum using hook cautery. The infundibulum was retracted laterally to expose the cystic duct away from the common bile duct. The cystic duct including the cystic artery were dissected free from its surrounding tissue. FIREFLY was used to identify the cystic artery and cystic structures. A critical view of safety was obtained. Large PLASTIC clips were used throughout the entire case. Using a clip market research assistant, 2 clips were placed at the junction of the infundibulum and cystic duct. The cystic duct was divided between clips. Next, the cystic artery was similarly clipped and cauterized. Electro-Bovie cautery was used to remove the gallbladder from the hepatic fossa. Hemostasis was checked and found to be adequate. The robot was undocked. I re-scrubbed into the case. Using a 10 mm Endo Catch bag via the left upper quadrant incision, the specimen was removed from the abdominal cavity. All pneumoperitoneum instruments were evacuated from the abdominal cavity. The incisions were reapproximated using 4-0 Monocryl in an interrupted subcuticular fashion. Fascial defects were less than 8 mm in size. Please note along the trocar sites, local anesthetic was placed as a field block prior to insertion of all instruments. Liquid glue was applied to the skin. At the end of the procedure needle, sponge, and instrument count had been verified correct by the surgical forceps fabricator. The patient was transferred to postanesthesia care unit in stable condition. Intraoperative films were shared with the patient's family who were pleased with the level of care. Plan - Discharge Summary Discharge Rx Participant: No New Discharge Prescriptions: New RX: Ibuprofen [Motrin] 600 mg PO Q8HR PRN #30 tab PRN Reason: Pain Acetaminophen Tab [Tylenol Tab] 1,000 mg PO Q6HR PRN #30 tablet PRN Reason: Pain Continue RX: Omeprazole 40 mg PO DAILY PRN PRN Reason: GERD RX: Multivitamins, Thera [Multivitamin (formulary)] 1 tab PO DAILY RX: Phentermine HCl [Adipex-P] 37.5 mg PO DAILY RX: Norelgestromin/Ethin.estradiol [Xulane Patch] 1 patch TRANSDERM Q7D Discharge Medication List RX: Omeprazole 40 mg PO DAILY PRN 09/18/19 [History] RX: Multivitamins, Thera [Multivitamin (formulary)] 1 tab PO DAILY 02/26/20 [History] RX: Norelgestromin/Ethin.estradiol [Xulane Patch] 1 patch TRANSDERM Q7D 02/26/20 [History] RX: Phentermine HCl [Adipex-P] 37.5 mg PO DAILY 02/26/20 [History] Acetaminophen Tab [Tylenol Tab] 1,000 mg PO Q6HR PRN #30 tablet 02/28/20 [Rx] RX: Ibuprofen [Motrin] 600 mg PO Q8HR PRN #30 tab 02/28/20 [Rx] Follow up Appointment(s)/Referral(s): Santa Perry MD [STAFF PHYSICIAN] - 03/03/20 Patient Instructions/Handouts: Low Fat Diet (DC), Laparoscopic Cholecystectomy (DC), *Surgery [facility] - Managing Your Pain After Surgery Without Opioids Activity/Diet/Wound Care/Special Instructions: No lifting over 10 pounds in 2 weeks until Mar 13. May shower. No bath tub soaks for two weeks until Mar 13. Diet as tolerated. Use Tylenol and ibuprofen/Aleve scheduled for the next 24-48 hours for best pain relief. Use ice along incisions for the today to prevent swelling. Discharge Disposition: HOME SELF-CARE
[2020-02-28 09:08] VITALS: RESP 16
[2020-02-28] MEDS ORDERED: ACETAMINOPHEN TAB 500 MG TAB PO ONE (10:01)
[2020-02-28] MEDS ORDERED: ACETAMINOPHEN TAB 500 MG TAB ONE (10:03)
[2020-02-28 10:50] VITALS: BP 112/73; PULSE 72
== END 2020-02-28 11:20 | disposition home or self-care (01) ==
LOC: OR 06:50
PROVIDERS: ATTEND Surgery Plastic and Reconstructive Surgery
DX: K80.10 Calculus of gallbladder with chronic cholecystitis without obstruction (principal); K21.9 Gastro-esophageal reflux disease without esophagitis; A60.00 Herpesviral infection of urogenital system, unspecified; E66.01 Morbid (severe) obesity due to excess calories; Z68.38 Body mass index [BMI] 38.0-38.9, adult; Z98.890 Other specified postprocedural states; Z87.898 Personal history of other specified conditions; Z87.891 Personal history of nicotine dependence; Z79.899 Other long term (current) drug therapy; Z79.3 Long term (current) use of hormonal contraceptives; Z91.09 Other allergy status, other than to drugs and biological substances; Z88.2 Allergy status to sulfonamides
CPT/HCPCS: 47562; S2900; 81025; 85025; 88304

== ENCOUNTER 2020-04-15 18:48 | Emergency (ER) | payer OTHER ==
[2020-04-15 18:58] VITALS: TEMP 98.8
[2020-04-15] MEDS ORDERED: KETOROLAC 15 MG/ML 1 ML VIAL IVP STA (19:14)
[2020-04-15] MEDS ORDERED: SODIUM CHLORIDE 0.9% 1,000 ML IV STA (19:14)
--- NOTE | 2020-04-15 19:34 | ED ---
Female Urogenital HPI - General Chief complaint: Urogenital Stated complaint: kidney pain Time Seen by Provider: 04/15/20 19:03 Source: patient Mode of arrival: ambulatory Limitations: no limitations - History of Present Illness Initial comments: Patient is a 25-year-old female presenting to the emergency Department with complaints of having symptoms of a UTI for the past 2 days. Patient states he was treated last week for a UTI with Cipro and did finish her medications for over the last 2 days she feels like her symptoms are returning and now she is having pain in her left kidney area. She states she is having frequency, urgency, burning. She did take a Pyridium today which did seem to help a little. She also had one episode of vomiting and nausea throughout today. She denies being as she is on her menstrual cycle at this time. She denies any fever, chills, diarrhea, chest pain or shortness of breath. She denies history of kidney stones. She states she does have frequent UTIs and has been this way since she was a kid. She has no further complaints at this time. Upon arrival to the ER her vitals are stable. Last Menstrual Period: 04/14/20 - Related Data Home Medications Medication Instructions Recorded Confirmed Norelgestromin/Ethin.estradiol 1 patch TRANSDERM Q7D 02/26/20 04/15/20 [Xulane Patch] Phentermine HCl [Adipex-P] 37.5 mg PO DAILY 02/26/20 04/15/20 Previous Rx's Medication Instructions Recorded Cephalexin [Keflex] 500 mg PO BID 10 Days #20 cap 04/15/20 Allergies Allergy/AdvReac Type Severity Reaction Status Date / Time adhesive tape Allergy Rash/Hives Verified 04/15/20 20:12 sulfamethoxazole Allergy Rash/Hives Verified 04/15/20 20:12 [From Bactrim] Review of Systems ROS Statement: Those systems with pertinent positive or pertinent negative responses have been documented in the HPI. ROS Other: All systems not noted in ROS Statement are negative. Past Medical History Past Medical History: GERD/Reflux Additional Past Medical History / Comment(s): Hx Genital herpes. Pain after eating in abd and back. History of Any Multi-Drug Resistant Organisms: None Reported Past Surgical History: Section, Cholecystectomy, Ear Surgery Additional Past Surgical History / Comment(s): C-S x2. BMT Rt ear. Past Anesthesia/Blood Transfusion Reactions: Motion Sickness Additional Past Anesthesia/Blood Transfusion Reaction / Comment(s): has never had anesthesia before Past Psychological History: Anxiety, Depression Smoking Status: Current every day smoker Past Alcohol Use History: None Reported Past Drug Use History: Marijuana - Past Family History Mother Family Medical History: No Reported History General Exam - General Exam Comments Initial Comments: GENERAL: Patient is well-developed and well-nourished. Patient is nontoxic and in no acute distress. HEAD: Atraumatic, normocephalic. EYES: Pupils equal round and reactive to light, extraocular movements intact, sclera anicteric, conjunctiva are normal. Eyelids were unremarkable. ENT: TMs normal, nares patent, oropharynx clear without exudates. Moist mucous membranes. NECK: Normal range of motion, supple without lymphadenopathy or JVD. LUNGS: Unlabored respirations. Breath sounds clear to auscultation bilaterally and equal. No wheezes rales or rhonchi. HEART: Regular rate and rhythm without murmurs, rubs or gallops. ABDOMEN: Mild suprapubic tenderness. Soft, normoactive bowel sounds. No guarding, no rebound. No masses appreciated. : Deferred MUSCULOSKELETAL: Normal extremities with adequate strength and normal range of motion, no pitting or edema. No clubbing or cyanosis. NEUROLOGICAL: Patient is alert and oriented x 3. Motor and sensory are also intact. Cranial nerves II through XII grossly intact. Symmetrical smile. Normal speech, normal gait. PSYCH: Normal mood, normal affect. SKIN: Warm, Dry, normal turgor, no rashes or lesions noted. Limitations: no limitations Course Vital Signs 04/15/20 04/15/20 18:53 20:27 Temperature 98.8 F 98.8 F Pulse Rate 101 H 98 Respiratory 17 18 Rate Blood Pressure 102/70 110/75 O2 Sat by Pulse 98 99 Oximetry Medical Decision Making - Medical Decision Making Patient is a 25-year-old female here for UTI-type symptoms as well as left kidney pain for the last 2 days, one episode of vomiting. She was treated last week with Cipro for a UTI. She was slight tachycardia on arrival otherwise vitals are normal. Her exam is unremarkable except for some mild suprapubic tenderness. I did check basic labs, white count is normal, kidney function is normal. Patient's urine is positive for nitrates, bacteria and large amount of wbc's. Her hCG is not detected. She received fluids, toradol, zofran. I will give patient 1 g of Rocephin in the ER and we'll start her on Keflex for p ossible pyelonephritis. Urine culture is pending. Patient is in agreement with this plan of care. Case discussed with Dr. Hurst. - Lab Data Result diagrams: 04/15/20 19:25 04/15/20 19:25 Lab Results 04/15/20 04/15/20 04/15/20 Range/Units 19:25 19:25 19:25 WBC 6.6 (3.8-10.6) k/uL RBC 4.67 (3.80-5.40) m/uL Hgb 14.0 (11.4-16.0) gm/dL Hct 42.4 (34.0-46.0) % MCV 90.7 (80.0-100.0) fL MCH 30.1 (25.0-35.0) pg MCHC 33.2 (31.0-37.0) g/dL RDW 12.8 (11.5-15.5) % Plt Count 249 (150-450) k/uL Neutrophils % 59 % Lymphocytes % 32 % Monocytes % 5 % Eosinophils % 3 % Basophils % 1 % Neutrophils # 3.9 (1.3-7.7) k/uL Lymphocytes # 2.1 (1.0-4.8) k/uL Monocytes # 0.3 (0-1.0) k/uL Eosinophils # 0.2 (0-0.7) k/uL Basophils # 0.0 (0-0.2) k/uL Sodium (137-145) mmol/L Potassium (3.5-5.1) mmol/L Chloride (98-107) mmol/L Carbon Dioxide (22-30) mmol/L Anion Gap mmol/L BUN (7-17) mg/dL Creatinine (0.52-1.04) mg/dL Est GFR (CKD-EPI)AfAm (>60 ml/min/1.73 sqM) Est GFR (CKD-EPI)NonAf (>60 ml/min/1.73 sqM) Glucose (74-99) mg/dL Calcium (8.4-10.2) mg/dL Total Bilirubin (0.2-1.3) mg/dL AST (14-36) U/L ALT (4-34) U/L Alkaline Phosphatase (38-126) U/L Total Protein (6.3-8.2) g/dL Albumin (3.5-5.0) g/dL Urine Color Dark Brown Urine Appearance Cloudy H (Clear) Urine pH 6.5 (5.0-8.0) Ur Specific [place] 1.023 (1.001-1.035) Urine Protein Trace H (Negative) Urine Glucose (UA) Negative (Negative) Urine Ketones Negative (Negative) Urine Blood Negative (Negative) Urine Nitrite Positive H (Negative) Urine Bilirubin 1+ H (Negative) Urine Urobilinogen 4.0 (<2.0) mg/dL Ur Leukocyte Esterase Large H (Negative) Urine RBC 2 (0-5) /hpf Urine WBC 75 H (0-5) /hpf Ur Squamous Epith Cells <1 (0-4) /hpf Urine Bacteria Many H (None) /hpf Urine Mucus Moderate H (None) /hpf Urine HCG, Qual Not Detected (Not Detectd) 04/15/20 Range/Units 19:25 WBC (3.8-10.6) k/uL RBC (3.80-5.40) m/uL Hgb (11.4-16.0) gm/dL Hct (34.0-46.0) % MCV (80.0-100.0) fL MCH (25.0-35.0) pg MCHC (31.0-37.0) g/dL RDW (11.5-15.5) % Plt Count (150-450) k/uL Neutrophils % % Lymphocytes % % Monocytes % % Eosinophils % % Basophils % % Neutrophils # (1.3-7.7) k/uL Lymphocytes # (1.0-4.8) k/uL Monocytes # (0-1.0) k/uL Eosinophils # (0-0.7) k/uL Basophils # (0-0.2) k/uL Sodium 137 (137-145) mmol/L Potassium 4.2 (3.5-5.1) mmol/L Chloride 111 H (98-107) mmol/L Carbon Dioxide 20 L (22-30) mmol/L Anion Gap 6 mmol/L BUN 11 (7-17) mg/dL Creatinine 0.56 (0.52-1.04) mg/dL Est GFR (CKD-EPI)AfAm >90 (>60 ml/min/1.73 sqM) Est GFR (CKD-EPI)NonAf >90 (>60 ml/min/1.73 sqM) Glucose 86 (74-99) mg/dL Calcium 9.9 (8.4-10.2) mg/dL Total Bilirubin 0.3 (0.2-1.3) mg/dL AST 26 (14-36) U/L ALT 30 (4-34) U/L Alkaline Phosphatase 56 (38-126) U/L Total Protein 6.6 (6.3-8.2) g/dL Albumin 3.8 (3.5-5.0) g/dL Urine Color Urine Appearance (Clear) Urine pH (5.0-8.0) Ur Specific [place] (1.001-1.035) Urine Protein (Negative) Urine Glucose (UA) (Negative) Urine Ketones (Negative) Urine Blood (Negative) Urine Nitrite (Negative) Urine Bilirubin (Negative) Urine Urobilinogen (<2.0) mg/dL Ur Leukocyte Esterase (Negative) Urine RBC (0-5) /hpf Urine WBC (0-5) /hpf Ur Squamous Epith Cells (0-4) /hpf Urine Bacteria (None) /hpf Urine Mucus (None) /hpf Urine HCG, Qual (Not Detectd) Disposition Clinical Impression: Pyelonephritis Disposition: HOME SELF-CARE Condition: Stable Instructions (If sedation given, give patient instructions): Kidney Infection (ED) Additional Instructions: Please return to the Emergency Department if symptoms worsen or any other concerns. Urinalysis reveals evidence for a UTI. Take antibiotics as prescribed and please complete the full dose. Follow-up with PCP. Prescriptions: Cephalexin [Keflex] 500 mg PO BID 10 Days #20 cap Is patient prescribed a controlled substance at d/c from ED?: No Referrals: Chavo Burch DO [Primary Care Provider] - 1-2 days
[2020-04-15 19:45] LABS: Basophils % (A) 1 %; Eosinophils # (A) 0.2 k/uL (0-0.7); Eosinophils % (A) 3 %; HCT 42.4 % (34.0-46.0); Lymphocytes # (A) 2.1 k/uL (1.0-4.8); Lymphocytes % (A) 32 %; MCH 30.1 pg (25.0-35.0); MCHC 33.2 g/dL (31.0-37.0); MCV 90.7 fL (80.0-100.0); Mean Platelet Volume 7.7; Monocytes # (A) 0.3 k/uL (0-1.0); Monocytes % (A) 5 %; Neutrophils # (A) 3.9 k/uL (1.3-7.7); Neutrophils % (A) 59 %; Platelet Count 249 k/uL (150-450); RBC 4.67 m/uL (3.80-5.40); RDW 12.8 % (11.5-15.5); WBC 6.6 k/uL (3.8-10.6)
[2020-04-15 19:50] LABS: Appearance,Urine Cloudy (Clear); Bacteria,Urine Many /hpf; Bilirubin,Urine 1+ (Negative); Blood,Urine Negative (Negative); Color,Urine Dark Brown; Glucose,Urine (UA) Negative (Negative); Ketones,Urine Negative (Negative); Leukocyte Esterase,Urine Large (Negative); Mucus,Urine Moderate /hpf; Nitrite,Urine Positive (Negative); PH, Urine 6.5 (5.0-8.0); Protein,Urine Trace (Negative); RBC,Urine 2 /hpf (0-5); Specific Gravity,Urine 1.023 (1.001-1.035); Squamous Epithelial Cell,Urine <1 /hpf (0-4); WBC,Urine 75 /hpf (0-5)
[2020-04-15 19:54] LABS: ALT 30 U/L (4-34); AST 26 U/L (14-36); African American GFR (CKD) >90 (>60 ml/min/1.73 sqM); Albumin 3.8 g/dL (3.5-5.0); Alkaline Phosphatase 56 U/L (38-126); Anion Gap 6 mmol/L; Blood Urea Nitrogen 11 mg/dL (7-17); Calcium 9.9 mg/dL (8.4-10.2); Carbon Dioxide 20 mmol/L (22-30); Chloride 111 mmol/L (98-107); Glucose 86 mg/dL (74-99); Non-African American GFR(CKD) >90 (>60 ml/min/1.73 sqM); Potassium 4.2 mmol/L (3.5-5.1); Sodium 137 mmol/L (137-145); Total Bilirubin 0.3 mg/dL (0.2-1.3); Total Protein 6.6 g/dL (6.3-8.2)
[2020-04-15] MEDS ORDERED: ONDANSETRON 4 MG/2 ML VIAL IVP STA (19:54)
[2020-04-15] MEDS ORDERED: cefTRIAXone IN SWFI 1,000 MG/10 ML SYRINGE IVP STA (19:57)
[2020-04-15 20:29] VITALS: BP 110/75; PULSE 98; RESP 18
== END 2020-04-15 20:29 | disposition home or self-care (01) ==
LOC: EC 18:48
DX: N12 Tubulo-interstitial nephritis, not specified as acute or chronic (principal); R00.0 Tachycardia, unspecified; F17.200 Nicotine dependence, unspecified, uncomplicated; Z88.2 Allergy status to sulfonamides; Z91.048 Other nonmedicinal substance allergy status; Z79.3 Long term (current) use of hormonal contraceptives; Z90.49 Acquired absence of other specified parts of digestive tract; Z98.890 Other specified postprocedural states
CPT/HCPCS: 36415; 80053; 85025; 81001; 81025; 87086; 99284; 96374; 96375 ×2; 96361; J2405; J0696; J1885

== ENCOUNTER → 2020-04-24 | Outpatient (CLI) | payer OTHER ==
--- NOTE | 2020-04-26 09:19 | MR ---
EXAMINATION TYPE: MR brain wo/w con DATE OF EXAM: 04/24/2020 COMPARISON: MRI brain March 30, 2017. 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 FINDINGS: Diffusion weighted images demonstrate no evidence of a recent infarct or other diffusion ab normality. There is no extra-axial fluid collection or significant white matter signal abnormality. The ventricular system and cisternal spaces are normal in size and appearance. The brain volume is age appropriate. Midline structures demonstrate normal morphology. The craniocervical junction appears within normal limits. There is persistent heterogeneous lesion posterior left frontal lobe with heterogeneous enhan cement having rim low T1 and T2 signal measuring 16 mm transversely by 12 mm AP diameter by 13 mm craniologist niocaudal diameter with some blooming artifact, there is posterior superior prominent vessel redemons trated. No new areas of enhancement. The dural venous sinuses appear patent. The visualized sinuses are clear and the globes are intact. IMPRESSION: Enlarging 1.6 cm posterior left frontal lesion with blooming artifact favoring vascular a nomaly or AVM.
== END | disposition home or self-care (01) ==
LOC: RADMRIMAIN 16:47
PROVIDERS: ATTEND Nurse Practitioner Family
DX: G93.9 Disorder of brain, unspecified (principal); Q28.2 Arteriovenous malformation of cerebral vessels
CPT/HCPCS: 70553; A9585

== ENCOUNTER 2020-05-17 10:27 | Emergency (ER) | payer OTHER ==
[2020-05-17 10:35] VITALS: BP 119/67; PULSE 98; RESP 16; TEMP 98
--- NOTE | 2020-05-17 10:40 | ED ---
Abdominal Pain HPI - General Chief Complaint: Abdominal Pain Stated Complaint: Gall bladder issues Time Seen by Provider: 05/17/20 10:38 Source: patient Mode of arrival: ambulatory Limitations: no limitations - History of Present Illness Initial Comments: 25-year-old female presenting to emergency Department with a chief complaint nausea vomiting. Patient states she had a cholecystectomy by Dr. Cerda 2 months ago and ever since the procedure she continues to have daily vomiting episodes, particularly in the morning. Patient reports she only vomits bile feels much better afterward. She also reports chronic diarrhea ever since the procedure was also performed. Patient states her primary care physician has evaluated her and prescribe her Zofran. Patient states now she ran out of the Zofran and is not able to keep much food down. She denies any night sweats fevers or chills. Patient reports about 2 weeks ago she was treated for UTI. Denies any urinary or vaginal symptoms at this time. Denies back pain chest pain shortness of breath. Denies hematuria, hematochezia or melena. - Related Data Home Medications Medication Instructions Recorded Confirmed Norelgestromin/Ethin.estradiol 1 patch TRANSDERM Q28D 02/26/20 05/17/20 [Xulane Patch] Phentermine HCl [Adipex-P] 37.5 mg PO DAILY 02/26/20 05/17/20 Nystatin 100,000 Unit/ml Susp 5 ml PO QID 05/17/20 05/17/20 [Mycostatin Oral Susp] Previous Rx's Medication Instructions Recorded Ondansetron Odt [Zofran Odt] 4 mg PO Q8HR PRN #30 tab 05/17/20 Allergies Allergy/AdvReac Type Severity Reaction Status Date / Time adhesive tape Allergy Rash/Hives Verified 05/17/20 11:25 sulfamethoxazole Allergy Rash/Hives Verified 05/17/20 11:25 [From Bactrim] Review of Systems ROS Statement: Those systems with pertinent positive or pertinent negative responses have been documented in the HPI. ROS Other: All systems not noted in ROS Statement are negative. Past Medical History Past Medical History: GERD/Reflux Additional Past Medical History / Comment(s): Hx Genital herpes. Pain after eating in abd and back. History of Any Multi-Drug Resistant Organisms: None Reported Past Surgical History: Section, Cholecystectomy, Ear Surgery Additional Past Surgical History / Comment(s): C-S x2. BMT Rt ear. Past Anesthesia/Blood Transfusion Reactions: Motion Sickness Additional Past Anesthesia/Blood Transfusion Reaction / Comment(s): has never had anesthesia before Past Psychological History: Anxiety, Depression Smoking Status: Current every day smoker Past Alcohol Use History: None Reported Past Drug Use History: Marijuana - Past Family History Mother Family Medical History: No Reported History General Exam Limitations: no limitations General appearance: alert, in no apparent distress Head exam: Present: atraumatic, normocephalic, normal inspection Eye exam: Present: normal appearance, PERRL, EOMI Pupils: Present: normal accommodation ENT exam: Present: normal exam, normal oropharynx, mucous membranes moist, TM's normal bilaterally, normal external ear exam Neck exam: Present: normal inspection, full ROM. Absent: tenderness, lymphadenopathy Respiratory exam: Present: normal lung sounds bilaterally. Absent: respiratory distress, wheezes, rales, rhonchi, stridor, chest wall tenderness, accessory muscle use Cardiovascular Exam: Present: regular rate, normal rhythm, normal heart sounds. Absent: systolic murmur GI/Abdominal exam: Present: soft, tenderness (Mild right upper quadrant tenderness), normal bowel sounds. Absent: distended, guarding, rebound, rigid Extremities exam: Present: normal inspection, full ROM, normal capillary refill. Absent: tenderness, pedal edema, joint swelling, calf tenderness Back exam: Present: normal inspection, full ROM. Absent: tenderness, CVA tenderness (R), CVA tenderness (L) Neurological exam: Present: alert, oriented X3, normal gait Psychiatric exam: Present: normal affect, normal mood. Absent: depressed, agita corie Skin exam: Present: warm, dry, intact, normal color Course Vital Signs 05/17/20 10:32 Temperature 98.0 F Pulse Rate 98 Respiratory 16 Rate Blood Pressure 119/67 O2 Sat by Pulse 97 Oximetry Medical Decision Making - Medical Decision Making 25-year-old female presenting to emergency Department with chief complaint of nausea vomiting. On physical examination patient has mild discomfort in right upper quadrant region. She is 2 months status post cholecystectomy. I ordered laboratory work and UA on the patient. I also had ordered antibiotics, fluids and Protonix. Patient states that she has to go to work and would rather have her results emailed to her. I advised the patient to stand emergency department until all the results have resulted. Patient states she feels comfortable going home and is only requesting Zofran. I gave her a Zofran starter pack and a prescription for Zofran. States that she will sign out AMA in order to go to [facility]. After she left, the laboratory results indicate an unremarkable CBC and CMP. UA did show ketones suggesting dehydration but no signs of urinary tract infection or hematuria. Strict return parameters were thoroughly discussed the patient is understanding and agreeable. Case discussed with physician. - Lab Data Result diagrams: 05/17/20 11:05/17/20 11: Lab Results 05/17/20 05/17/20 05/17/20 Range/Units 11: 11: 11: WBC 5.6 (3.8-10.6) k/uL RBC 4.67 (3.80-5.40) m/uL Hgb 14.2 (11.4-16.0) gm/dL Hct 41.6 (34.0-46.0) % MCV 89.0 (80.0-100.0) fL MCH 30.3 (25.0-35.0) pg MCHC 34.1 (31.0-37.0) g/dL RDW 13.1 (11.5-15.5) % Plt Count 238 (150-450) k/uL MPV 7.8 Neutrophils % 75 % Lymphocytes % 19 % Monocytes % 3 % Eosinophils % 1 % Basophils % 1 % Neutrophils # 4.2 (1.3-7.7) k/uL Lymphocytes # 1.1 (1.0-4.8) k/uL Monocytes # 0.2 (0-1.0) k/uL Eosinophils # 0.1 (0-0.7) k/uL Basophils # 0.0 (0-0.2) k/uL Sodium (137-145) mmol/L Potassium (3.5-5.1) mmol/L Chloride (98-107) mmol/L Carbon Dioxide (22-30) mmol/L Anion Gap mmol/L BUN (7-17) mg/dL Creatinine (0.52-1.04) mg/dL Est GFR (CKD-EPI)AfAm (>60 ml/min/1.73 sqM) Est GFR (CKD-EPI)NonAf (>60 ml/min/1.73 sqM) Glucose (74-99) mg/dL Calcium (8.4-10.2) mg/dL Total Bilirubin (0.2-1.3) mg/dL AST (14-36) U/L ALT (4-34) U/L Alkaline Phosphatase (38-126) U/L Total Protein (6.3-8.2) g/dL Albumin (3.5-5.0) g/dL Lipase (23-300) U/L Urine Color Yellow Urine Appearance Cloudy H (Clear) Urine pH 6.0 (5.0-8.0) Ur Specific [place] 1.026 (1.001-1.035) Urine Protein 1+ H (Negative) Urine Glucose (UA) Negative (Negative) Urine Ketones 1+ H (Negative) Urine Blood Negative (Negative) Urine Nitrite Negative (Negative) Urine Bilirubin Negative (Negative) Urine Urobilinogen 2.0 (<2.0) mg/dL Ur Leukocyte Esterase Small H (Negative) Urine WBC 7 H (0-5) /hpf Ur Squamous Epith Cells 4 (0-4) /hpf Urine Mucus Many H (None) /hpf Urine HCG, Qual Not Detected (Not Detectd) 05/17/20 Range/Units 11:25 WBC (3.8-10.6) k/uL RBC (3.80-5.40) m/uL Hgb (11.4-16.0) gm/dL Hct (34.0-46.0) % MCV (80.0-100.0) fL MCH (25.0-35.0) pg MCHC (31.0-37.0) g/dL RDW (11.5-15.5) % Plt Count (150-450) k/uL MPV Neutrophils % % Lymphocytes % % Monocytes % % Eosinophils % % Basophils % % Neutrophils # (1.3-7.7) k/uL Lymphocytes # (1.0-4.8) k/uL Monocytes # (0-1.0) k/uL Eosinophils # (0-0.7) k/uL Basophils # (0-0.2) k/uL Sodium 138 (137-145) mmol/L Potassium 4.3 (3.5-5.1) mmol/L Chloride 110 H (98-107) mmol/L Carbon Dioxide 23 (22-30) mmol/L Anion Gap 5 mmol/L BUN 8 (7-17) mg/dL Creatinine 0.62 (0.52-1.04) mg/dL Est GFR (CKD-EPI)AfAm >90 (>60 ml/min/1.73 sqM) Est GFR (CKD-EPI)NonAf >90 (>60 ml/min/1.73 sqM) Glucose 99 (74-99) mg/dL Calcium 10.2 (8.4-10.2) mg/dL Total Bilirubin 0.6 (0.2-1.3) mg/dL AST 29 (14-36) U/L ALT 50 H (4-34) U/L Alkaline Phosphatase 57 (38-126) U/L Total Protein 6.9 (6.3-8.2) g/dL Albumin 4.1 (3.5-5.0) g/dL Lipase 30 (23-300) U/L Urine Color Urine Appearance (Clear) Urine pH (5.0-8.0) Ur Specific [place] (1.001-1.035) Urine Protein (Negative) Urine Glucose (UA) (Negative) Urine Ketones (Negative) Urine Blood (Negative) Urine Nitrite (Negative) Urine Bilirubin (Negative) Urine Urobilinogen (<2.0) mg/dL Ur Leukocyte Esterase (Negative) Urine WBC (0-5) /hpf Ur Squamous Epith Cells (0-4) /hpf Urine Mucus (None) /hpf Urine HCG, Qual (Not Detectd) Disposition Clinical Impression: Nausea & vomiting Disposition: Left Against Medical Advice Condition: Stable Instructions (If sedation given, give patient instructions): Acute Nausea and Vomiting (ED) Additional Instructions: Take medications directed. Follow with primary care physician. Return to emergency department if symptoms worsen. Prescriptions: Ondansetron Odt [Zofran Odt] 4 mg PO Q8HR PRN #30 tab PRN Reason: Nausea Is patient prescribed a controlled substance at d/c from ED?: No Referrals: Chavo Burch DO [Primary Care Provider] - 1-2 days Time of Disposition: 11:17
[2020-05-17] MEDS ORDERED: SODIUM CHLORIDE 0.9% 1,000 ML IV STA (10:45)
[2020-05-17] MEDS ORDERED: PANTOPRAZOLE 40 MG/10 ML VIAL IVP STA (10:45)
[2020-05-17] MEDS ORDERED: ONDANSETRON 4 MG/2 ML VIAL IVP STA (10:45)
[2020-05-17] MEDS ORDERED: ONDANSETRON 4 MG ODT STARTER PACK 2 TAB BTL PO STA (11:16)
[2020-05-17 11:51] LABS: Basophils % (A) 1 %; Eosinophils # (A) 0.1 k/uL (0-0.7); Eosinophils % (A) 1 %; HCT 41.6 % (34.0-46.0); HGB 14.2 gm/dL (11.4-16.0); Lymphocytes # (A) 1.1 k/uL (1.0-4.8); Lymphocytes % (A) 19 %; MCH 30.3 pg (25.0-35.0); MCHC 34.1 g/dL (31.0-37.0); Mean Platelet Volume 7.8; Monocytes # (A) 0.2 k/uL (0-1.0); Monocytes % (A) 3 %; Neutrophils # (A) 4.2 k/uL (1.3-7.7); Neutrophils % (A) 75 %; Platelet Count 238 k/uL (150-450); RBC 4.67 m/uL (3.80-5.40); RDW 13.1 % (11.5-15.5); WBC 5.6 k/uL (3.8-10.6)
[2020-05-17 12:00] LABS: ALT 50 U/L (4-34); AST 29 U/L (14-36); African American GFR (CKD) >90 (>60 ml/min/1.73 sqM); Albumin 4.1 g/dL (3.5-5.0); Alkaline Phosphatase 57 U/L (38-126); Anion Gap 5 mmol/L; Blood Urea Nitrogen 8 mg/dL (7-17); Calcium 10.2 mg/dL (8.4-10.2); Carbon Dioxide 23 mmol/L (22-30); Chloride 110 mmol/L (98-107); Glucose 99 mg/dL (74-99); Lipase 30 U/L (23-300); Non-African American GFR(CKD) >90 (>60 ml/min/1.73 sqM); Potassium 4.3 mmol/L (3.5-5.1); Sodium 138 mmol/L (137-145); Total Bilirubin 0.6 mg/dL (0.2-1.3); Total Protein 6.9 g/dL (6.3-8.2)
[2020-05-17 12:01] LABS: Appearance,Urine Cloudy (Clear); Bilirubin,Urine Negative (Negative); Blood,Urine Negative (Negative); Color,Urine Yellow; Glucose,Urine (UA) Negative (Negative); Ketones,Urine 1+ (Negative); Leukocyte Esterase,Urine Small (Negative); Mucus,Urine Many /hpf; Nitrite,Urine Negative (Negative); Protein,Urine 1+ (Negative); Specific Gravity,Urine 1.026 (1.001-1.035); Squamous Epithelial Cell,Urine 4 /hpf (0-4); WBC,Urine 7 /hpf (0-5)
== END 2020-05-17 11:26 | disposition left against medical advice (07) ==
LOC: EC 10:27
DX: R11.2 Nausea with vomiting, unspecified (principal); R10.11 Right upper quadrant pain; F41.9 Anxiety disorder, unspecified; Z90.49 Acquired absence of other specified parts of digestive tract; Z88.2 Allergy status to sulfonamides; Z91.048 Other nonmedicinal substance allergy status; F17.200 Nicotine dependence, unspecified, uncomplicated; Z53.29 Procedure and treatment not carried out because of patient's decision for other reasons
CPT/HCPCS: 36415; 80053; 83690; 85025; 81001; 81025; 99283; S0119

== ENCOUNTER 2020-05-22 23:52 | Emergency (ER) | payer OTHER ==
[2020-05-23] MEDS ORDERED: SODIUM CHLORIDE 0.9% 1,000 ML IV STA (00:38)
[2020-05-23] MEDS ORDERED: ONDANSETRON 4 MG/2 ML VIAL IVP STA (00:38)
[2020-05-23 01:13] LABS: Basophils % (A) 1 %; Eosinophils # (A) 0.1 k/uL (0-0.7); Eosinophils % (A) 2 %; HCT 39.3 % (34.0-46.0); HGB 12.5 gm/dL (11.4-16.0); Lymphocytes # (A) 2.3 k/uL (1.0-4.8); Lymphocytes % (A) 38 %; MCHC 31.8 g/dL (31.0-37.0); MCV 91.2 fL (80.0-100.0); Mean Platelet Volume 8.2; Monocytes # (A) 0.2 k/uL (0-1.0); Monocytes % (A) 4 %; Neutrophils # (A) 3.3 k/uL (1.3-7.7); Neutrophils % (A) 55 %; Platelet Count 209 k/uL (150-450); RBC 4.31 m/uL (3.80-5.40); RDW 13.5 % (11.5-15.5); WBC 6.1 k/uL (3.8-10.6)
[2020-05-23 01:18] LABS: Appearance,Urine Cloudy (Clear); Bacteria,Urine Rare /hpf; Bilirubin,Urine Negative (Negative); Blood,Urine Negative (Negative); Color,Urine Yellow; Glucose,Urine (UA) Negative (Negative); Ketones,Urine Negative (Negative); Leukocyte Esterase,Urine Large (Negative); Mucus,Urine Many /hpf; Nitrite,Urine Negative (Negative); Protein,Urine Trace (Negative); RBC,Urine 2 /hpf (0-5); Specific Gravity,Urine 1.022 (1.001-1.035); Squamous Epithelial Cell,Urine 1 /hpf (0-4); Urobilinogen,Urine <2.0 mg/dL (<2.0); WBC,Urine >182 /hpf (0-5)
[2020-05-23 01:23] LABS: ALT 61 U/L (4-34); AST 25 U/L (14-36); African American GFR (CKD) >90 (>60 ml/min/1.73 sqM); Albumin 3.8 g/dL (3.5-5.0); Alkaline Phosphatase 52 U/L (38-126); Anion Gap 6 mmol/L; Blood Urea Nitrogen 10 mg/dL (7-17); Calcium 10.4 mg/dL (8.4-10.2); Carbon Dioxide 25 mmol/L (22-30); Chloride 105 mmol/L (98-107); Glucose 98 mg/dL (74-99); Non-African American GFR(CKD) >90 (>60 ml/min/1.73 sqM); Potassium 3.9 mmol/L (3.5-5.1); Sodium 136 mmol/L (137-145); Total Bilirubin 0.3 mg/dL (0.2-1.3); Total Protein 6.5 g/dL (6.3-8.2)
[2020-05-23] MEDS ORDERED: cefTRIAXone IN SWFI 1,000 MG/10 ML SYRINGE IVP STA (01:31)
--- NOTE | 2020-05-23 02:05 | ED ---
General Adult HPI - General Chief complaint: Nausea/Vomiting/Diarrhea Stated complaint: Urogenital Time Seen by Provider: 05/23/20 00:05 Source: patient, RN notes reviewed, old records reviewed Mode of arrival: ambulatory Limitations: no limitations - History of Present Illness Initial comments: Patient is a 25-year-old female who presents emergency department today with concern for retained tampon is been there for the past week. She reports that she removed at this evening. She states that she's been having some abdominal pelvic discomfort and now believes that she has UTI. She denies any chest pain or shortness of breath. Patient was seen in emergency department 5 days ago for concern for upper abdominal pain gastritis or gallbladder pain. Her labs reviewed at the time and were normal. Patient is concerned that she may have developed infection from the retained tampon from this past week. - Related Data Home Medications Medication Instructions Recorded Confirmed Norelgestromin/Ethin.estradiol 1 patch TRANSDERM Q28D 02/26/20 05/17/20 [Xulane Patch] Phentermine HCl [Adipex-P] 37.5 mg PO DAILY 02/26/20 05/17/20 Nystatin 100,000 Unit/ml Susp 5 ml PO QID 05/17/20 05/17/20 [Mycostatin Oral Susp] Previous Rx's Medication Instructions Recorded Ondansetron Odt [Zofran Odt] 4 mg PO Q8HR PRN #30 tab 05/17/20 Cephalexin [Keflex] 500 mg PO Q6HR 10 Days #40 cap 05/23/20 Allergies Allergy/AdvReac Type Severity Reaction Status Date / Time adhesive tape Allergy Rash/Hives Verified 05/22/20 23:58 sulfamethoxazole Allergy Rash/Hives Verified 05/22/20 23:58 [From Bactrim] Review of Systems ROS Statement: Those systems with pertinent positive or pertinent negative responses have been documented in the HPI. ROS Other: All systems not noted in ROS Statement are negative. Past Medical History Past Medical History: GERD/Reflux Additional Past Medical History / Comment(s): Hx Genital herpes. Pain after eating in abd and back. History of Any Multi-Drug Resistant Organisms: None Reported Past Surgical History: Section, Cholecystectomy, Ear Surgery Additional Past Surgical History / Comment(s): C-S x2. BMT Rt ear. Past Anesthesia/Blood Transfusion Reactions: Motion Sickness Additional Past Anesthesia/Blood Transfusion Reaction / Comment(s): has never had anesthesia before Past Psychological History: Anxiety, Depression Smoking Status: Current every day smoker Past Alcohol Use History: None Reported Past Drug Use History: Marijuana - Past Family History Mother Family Medical History: No Reported History General Exam - General Exam Comments Initial Comments: 25-year-old female. No distress. Limitations: no limitations General appearance: alert, in no apparent distress Head exam: Present: atraumatic, normocephalic, normal inspection Eye exam: Present: normal appearance, PERRL, EOMI. Absent: scleral icterus, conjunctival injection, periorbital swelling ENT exam: Present: normal exam, mucous membranes moist Neck exam: Present: normal inspection. Absent: tenderness, meningismus, lymphadenopathy Respiratory exam: Present: normal lung sounds bilaterally. Absent: respiratory distress, wheezes, rales, rhonchi, stridor Cardiovascular Exam: Present: regular rate, normal rhythm, normal heart sounds. Absent: systolic murmur, diastolic murmur, rubs, gallop, clicks GI/Abdominal exam: Present: soft, normal bowel sounds. Absent: distended, tenderness, guarding, rebound, rigid Extremities exam: Present: normal inspection, full ROM, normal capillary refill. Absent: tenderness, pedal edema, joint swelling, calf tenderness Back exam: Present: normal inspection Neurological exam: Present: alert, oriented X3, CN II-XII intact Psychiatric exam: Present: normal affect, normal mood Skin exam: Present: warm, dry, intact, normal color. Absent: rash Course Vital Signs 05/22/20 23:54 Temperature 99.0 F Pulse Rate 94 Respiratory 20 Rate Blood Pressure 121/75 O2 Sat by Pulse 99 Oximetry Medical Decision Making - Medical Decision Making 25-year-old female presents with concern that she had a retained tampon this past week and now concerned for UTI. Patient's lab work of blood was normal. Patient UA did show positive urinary tract infection. Pelvic examination no discharge. No retained tampon at this time she removed it prior to arrival. Patient will be given Rocephin the emergency department. Pt will be discharged with keflex. Discussed follow up with PCP. - Lab Data Result diagrams: 05/23/20 01:05 05/23/20 01:05 Lab Results 05/23/20 05/23/20 05/23/20 Range/Units 01:05 01:05 01:05 WBC 6.1 (3.8-10.6) k/uL RBC 4.31 (3.80-5.40) m/uL Hgb 12.5 (11.4-16.0) gm/dL Hct 39.3 (34.0-46.0) % MCV 91.2 (80.0-100.0) fL MCH 29.0 (25.0-35.0) pg MCHC 31.8 (31.0-37.0) g/dL RDW 13.5 (11.5-15.5) % Plt Count 209 (150-450) k/uL MPV 8.2 Neutrophils % 55 % Lymphocytes % 38 % Monocytes % 4 % Eosinophils % 2 % Basophils % 1 % Neutrophils # 3.3 (1.3-7.7) k/uL Lymphocytes # 2.3 (1.0-4.8) k/uL Monocytes # 0.2 (0-1.0) k/uL Eosinophils # 0.1 (0-0.7) k/uL Basophils # 0.0 (0-0.2) k/uL Sodium 136 L (137-145) mmol/L Potassium 3.9 (3.5-5.1) mmol/L Chloride 105 (98-107) mmol/L Carbon Dioxide 25 (22-30) mmol/L Anion Gap 6 mmol/L BUN 10 (7-17) mg/dL Creatinine 0.71 (0.52-1.04) mg/dL Est GFR (CKD-EPI)AfAm >90 (>60 ml/min/1.73 sqM) Est GFR (CKD-EPI)NonAf >90 (>60 ml/min/1.73 sqM) Glucose 98 (74-99) mg/dL Calcium 10.4 H (8.4-10.2) mg/dL Total Bilirubin 0.3 (0.2-1.3) mg/dL AST 25 (14-36) U/L ALT 61 H (4-34) U/L Alkaline Phosphatase 52 (38-126) U/L Total Protein 6.5 (6.3-8.2) g/dL Albumin 3.8 (3.5-5.0) g/dL Urine Color Yellow Urine Appearance Cloudy H (Clear) Urine pH 6.0 (5.0-8.0) Ur Specific [place] 1.022 (1.001-1.035) Urine Protein Trace H (Negative) Urine Glucose (UA) Negative (Negative) Urine Ketones Negative (Negative) Urine Blood Negative (Negative) Urine Nitrite Negative (Negative) Urine Bilirubin Negative (Negative) Urine Urobilinogen <2.0 (<2.0) mg/dL Ur Leukocyte Esterase Large H (Negative) Urine RBC 2 (0-5) /hpf Urine WBC >182 H (0-5) /hpf Ur Squamous Epith Cells 1 (0-4) /hpf Urine Bacteria Rare H (None) /hpf Urine Mucus Many H (None) /hpf Trichomonas Ag (Rapid) (Negative) 05/23/20 Range/Units 01:35 WBC (3.8-10.6) k/uL RBC (3.80-5.40) m/uL Hgb (11.4-16.0) gm/dL Hct (34.0-46.0) % MCV (80.0-100.0) fL MCH (25.0-35.0) pg MCHC (31.0-37.0) g/dL RDW (11.5-15.5) % Plt Count (150-450) k/uL MPV Neutrophils % % Lymphocytes % % Monocytes % % Eosinophils % % Basophils % % Neutrophils # (1.3-7.7) k/uL Lymphocytes # (1.0-4.8) k/uL Monocytes # (0-1.0) k/uL Eosinophils # (0-0.7) k/uL Basophils # (0-0.2) k/uL Sodium (137-145) mmol/L Potassium (3.5-5.1) mmol/L Chloride (98-107) mmol/L Carbon Dioxide (22-30) mmol/L Anion Gap mmol/L BUN (7-17) mg/dL Creatinine (0.52-1.04) mg/dL Est GFR (CKD-EPI)AfAm (>60 ml/min/1.73 sqM) Est GFR (CKD-EPI)NonAf (>60 ml/min/1.73 sqM) Glucose (74-99) mg/dL Calcium (8.4-10.2) mg/dL Total Bilirubin (0.2-1.3) mg/dL AST (14-36) U/L ALT (4-34) U/L Alkaline Phosphatase (38-126) U/L Total Protein (6.3-8.2) g/dL Albumin (3.5-5.0) g/dL Urine Color Urine Appearance (Clear) Urine pH (5.0-8.0) Ur Specific [place] (1.001-1.035) Urine Protein (Negative) Urine Glucose (UA) (Negative) Urine Ketones (Negative) Urine Blood (Negative) Urine Nitrite (Negative) Urine Bilirubin (Negative) Urine Urobilinogen (<2.0) mg/dL Ur Leukocyte Esterase (Negative) Urine RBC (0-5) /hpf Urine WBC (0-5) /hpf Ur Squamous Epith Cells (0-4) /hpf Urine Bacteria (None) /hpf Urine Mucus (None) /hpf Trichomonas Ag (Rapid) Negative (Negative) Disposition Clinical Impression: UTI (urinary tract infection), Nausea, Retained tampon Disposition: HOME SELF-CARE Condition: Good Instructions (If sedation given, give patient instructions): Urinary Tract Infection in Women (ED) Additional Instructions: Take the medication as prescribed. Follow-up with primary care doctor. Return to ED if any alarming signs or symptoms occur. Prescriptions: Cephalexin [Keflex] 500 mg PO Q6HR 10 Days #40 cap Is patient prescribed a controlled substance at d/c from ED?: No Referrals: Chavo Burch DO [Primary Care Provider] - 1-2 days Time of Disposition: 02:04
[2020-05-23 03:28] VITALS: BP 121/56; PULSE 64; RESP 17; TEMP 97.6
== END 2020-05-23 03:06 | disposition home or self-care (01) ==
LOC: EC 23:52
DX: N39.0 Urinary tract infection, site not specified (principal); F17.200 Nicotine dependence, unspecified, uncomplicated; Z79.3 Long term (current) use of hormonal contraceptives; Z79.899 Other long term (current) drug therapy; Z91.048 Other nonmedicinal substance allergy status; Z88.2 Allergy status to sulfonamides; Z90.49 Acquired absence of other specified parts of digestive tract
CPT/HCPCS: 36415; 80053; 85025; 81001; 87808; 87491; 87591; 99284; 96374; 96375; 96361; J2405; J0696

== ENCOUNTER → 2020-06-04 | Outpatient (CLI) | payer OTHER | END | disposition home or self-care (01) | LOC: LABWHC1 16:14 | PROVIDERS: ATTEND Nurse Practitioner Family | DX: Z20.828 Contact with and (suspected) exposure to other viral communicable diseases (principal) | CPT/HCPCS: U0003; C9803 ==

== ENCOUNTER 2020-06-21 20:02 | Emergency (ER) | payer OTHER ==
[2020-06-21 20:07] VITALS: BP 120/66; PULSE 108; RESP 24; TEMP 98.7
[2020-06-21] MEDS ORDERED: ALBUTEROL HFA INHALER INHALATION STA (20:13)
--- NOTE | 2020-06-21 20:17 | ED ---
ENT HPI - General Chief complaint: ENT Stated complaint: Sore Throat Time Seen by Provider: 06/21/20 20:07 Source: patient Mode of arrival: ambulatory Limitations: no limitations - History of Present Illness Initial comments: 25 year-old male patient presents to the emergency department for evaluation of shortness of breath and dry cough. Patient states symptoms started today. She is very nervous that she has COVID. She denies any fever or chills. Denies nasal congestion or drainage. She is unsure if she has been exposed to anyone with COVID or other illnesses. States she is otherwise healthy. Does admit to smoking cigarettes. Patient denies any recent rash, cough, chest pain, abdominal pain, nausea, vomiting, diarrhea, constipation, back pain, numbness, tingling, dizziness, weakness, hematuria, dysuria, urinary urgency, urinary frequency, headache, visual changes, or any other complaints. - Related Data Home Medications Medication Instructions Recorded Confirmed Norelgestromin/Ethin.estradiol 1 patch TRANSDERM Q28D 02/26/20 06/08/20 [Xulane Patch] Nystatin 100,000 Unit/ml Susp 5 ml PO QID 05/17/20 06/08/20 [Mycostatin Oral Susp] Previous Rx's Medication Instructions Recorded Ondansetron Odt [Zofran Odt] 4 mg PO Q8HR PRN #30 tab 05/17/20 Allergies Allergy/AdvReac Type Severity Reaction Status Date / Time adhesive tape Allergy Rash/Hives Verified 06/21/20 20:06 sulfamethoxazole Allergy Rash/Hives Verified 06/21/20 20:06 [From Bactrim] Review of Systems ROS Statement: Those systems with pertinent positive or pertinent negative responses have been documented in the HPI. ROS Other: All systems not noted in ROS Statement are negative. Past Medical History Past Medical History: GERD/Reflux Additional Past Medical History / Comment(s): Hx Genital herpes. Pain after eating in abd and back. History of Any Multi-Drug Resistant Organisms: None Reported Past Surgical History: Section, Cholecystectomy, Ear Surgery Additional Past Surgical History / Comment(s): C-S x2. BMT Rt ear. Past Anesthesia/Blood Transfusion Reactions: Motion Sickness Additional Past Anesthesia/Blood Transfusion Reaction / Comment(s): has never had anesthesia before Past Psychological History: Anxiety, Depression Smoking Status: Current every day smoker Past Alcohol Use History: None Reported Additional Past Alcohol Use History / Comment(s): STARTED SMOKING AT AGE 15, QUIT OCTOBER 2018, SMOKED 1/2 PPD. Past Drug Use History: None Reported Additional Drug Use History / Comment(s): daily use - Past Family History Mother Family Medical History: No Reported History General Exam Limitations: no limitations General appearance: alert, in no apparent distress, other (This is a well-devel oped, well-nourished adult female patient in no acute distress. Vital signs upon presentation are temperature 98.7F, pulse 108, respirations 24, blood pressure 120/66, pulse ox 98% on room air.) Eye exam: Present: normal appearance, PERRL, EOMI. Absent: scleral icterus, conjunctival injection, periorbital swelling ENT exam: Present: normal exam, normal oropharynx, mucous membranes moist, TM's normal bilaterally Respiratory exam: Present: normal lung sounds bilaterally. Absent: respiratory distress, wheezes, rales, rhonchi, stridor Cardiovascular Exam: Present: regular rate, normal rhythm, normal heart sounds. Absent: systolic murmur, diastolic murmur, rubs, gallop, clicks Neurological exam: Present: alert, oriented X3, CN II-XII intact Psychiatric exam: Present: normal affect, normal mood Skin exam: Present: warm, dry, intact, normal color. Absent: rash Course Vital Signs 06/21/20 20:02 Temperature 98.7 F Pulse Rate 108 H Respiratory 24 Rate Blood Pressure 120/66 O2 Sat by Pulse 98 Oximetry Medical Decision Making - Medical Decision Making 25-year-old female patient sent to the emergency department today for evaluation of shortness of breath, chest tightness, throat tightness with a dry cough. Physical examination was clear equal lung sounds. She is afebrile with normal vitals, a little bit tachycardia but again admits to being very anxious because she thinks she may have Covid. COVID-19 test is negative. Chest xray is negative. Patient does report improvement in symptoms after using inhaler. She'll be discharged on the primary care physician for recheck in 1-2 days. Return parameters were discussed in detail. They verbalize understanding and agrees with this plan. - Lab Data Lab Results 06/21/20 Range/Units 20:17 Coronavirus (PCR) Not Detected (Not Detectd) - Radiology Data Radiology results: report reviewed, image reviewed One view x-ray of the chest is obtained. Report is reviewed in its entirety. Impression by Dr. Cochran shows normal chest. No change. Disposition Clinical Impression: Upper respiratory infection Disposition: HOME SELF-CARE Condition: Good Instructions (If sedation given, give patient instructions): Upper Respiratory Infection (ED) Additional Instructions: Use inhaler as needed for symptom relief. Use [id number] cough and cold medication her symptoms worsen. Follow-up through primary care physician for recheck in 1-2 days. Return to the emergency department for any new, worsening, or concerning symptoms. Is patient prescribed a controlled substance at d/c from ED?: No Referrals: Chavo Burch DO [Primary Care Provider] - 1-2 days Time of Disposition: 21:12
--- NOTE | 2020-06-21 20:47 | XR ---
EXAMINATION TYPE: XR chest 1V portable DATE OF EXAM: 06/21/2020 COMPARISON: 06/22/2019 HISTORY: Chest pain TECHNIQUE: FINDINGS: Heart and mediastinum are normal. Lungs are clear. Diaphragm is normal. Bony thorax appears normal. IMPRESSION: Normal chest. No change.
== END 2020-06-21 21:18 | disposition home or self-care (01) ==
LOC: EC 20:02
DX: J06.9 Acute upper respiratory infection, unspecified (principal); R00.0 Tachycardia, unspecified; F17.210 Nicotine dependence, cigarettes, uncomplicated; Z79.3 Long term (current) use of hormonal contraceptives; Z79.899 Other long term (current) drug therapy; Z91.048 Other nonmedicinal substance allergy status; Z88.2 Allergy status to sulfonamides; Z20.828 Contact with and (suspected) exposure to other viral communicable diseases
CPT/HCPCS: 71045; 87635; 94640; 99283

== ENCOUNTER 2020-07-14 17:07 | Emergency (ER) | payer OTHER ==
[2020-07-14 17:16] VITALS: BP 115/69; PULSE 82; RESP 18; TEMP 98.7
--- NOTE | 2020-07-14 17:18 | ED ---
Fall HPI - General Chief Complaint: Fall Stated Complaint: fall/head pain Time Seen by Provider: 07/14/20 17:17 Source: patient Mode of arrival: ambulatory - History of Present Illness Initial Comments: 25-year-old male presenting to the emergency department chief complaint of a fall. Patient reports this occurred early this one. Patient states she was in the shower when she lost her balance and fell causing injury to the head. Patient states she developed a headache throughout the day. Patient denies loss of consciousness at time of incident. She denies any blood thinners. She denies any visual disturbances, one-sided weakness paresthesias. Denies taking medication to alleviate the symptoms. Denies any lightheadedness, dizziness. 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 - Related Data Home Medications Medication Instructions Recorded Confirmed Norelgestromin/Ethin.estradiol 1 patch TRANSDERM Q28D 02/26/20 07/14/20 [Xulane Patch] Allergies Allergy/AdvReac Type Severity Reaction Status Date / Time adhesive tape Allergy Rash/Hives Verified 07/14/20 18:01 sulfamethoxazole Allergy Rash/Hives Verified 07/14/20 18:01 [From Bactrim] Review of Systems ROS Statement: Those systems with pertinent positive or pertinent negative responses have been documented in the HPI. ROS Other: All systems not noted in ROS Statement are negative. Past Medical History Past Medical History: GERD/Reflux Additional Past Medical History / Comment(s): Hx Genital herpes. Pain after eating in abd and back. History of Any Multi-Drug Resistant Organisms: None Reported Past Surgical History: Section, Cholecystectomy, Ear Surgery Additional Past Surgical History / Comment(s): C-S x2. BMT Rt ear. Past Anesthesia/Blood Transfusion Reactions: Motion Sickness Additional Past Anesthesia/Blood Transfusion Reaction / Comment(s): has never had anesthesia before Past Psychological History: Anxiety, Depression Smoking Status: Current every day smoker Past Alcohol Use History: None Reported Past Drug Use History: None Reported - Past Family History Mother Family Medical History: No Reported History General Exam Limitations: no limitations General appearance: alert, in no apparent distress Head exam: Present: atraumatic, normocephalic, normal inspection. Absent: other (Negative Fox sign, raccoon eyes, hemotympanum.) Eye exam: Present: normal appearance, PERRL, EOMI Pupils: Present: normal accommodation ENT exam: Present: normal exam, normal oropharynx, mucous membranes moist, TM's normal bilaterally, normal external ear exam Neck exam: Present: normal inspection, tenderness, full ROM. Absent: lymphadenopathy Respiratory exam: Present: normal lung sounds bilaterally. Absent: respiratory distress, wheezes, rales Cardiovascular Exam: Present: regular rate, normal rhythm, normal heart sounds. Absent: systolic murmur, diastolic murmur Extremities exam: Present: normal inspection, full ROM, normal capillary refill. Absent: tenderness, pedal edema, joint swelling Back exam: Present: normal inspection, full ROM. Absent: tenderness, CVA tenderness (R), CVA tenderness (L) Neurological exam: Present: alert, oriented X3, normal gait Expanded Patient oriented to: Present: person, place, time Speech: Present: fluid speech Cranial nerves: Nystagmus: Normal Eye Response: (4) open spontaneously Motor Response: (6) obeys commands Verbal Response: (5) oriented Psychiatric exam: Present: normal affect, normal mood Skin exam: Present: warm, dry, intact, normal color Course Vital Signs 07/14/20 17:10 Temperature 98.7 F Pulse Rate 82 Respiratory 18 Rate Blood Pressure 115/69 O2 Sat by Pulse 99 Oximetry Medical Decision Making - Medical Decision Making 25-year-old female presenting to the emergency department with a chief complaint of fall. On physical examination, patient does have some localized tenderness in the right frontoparietal region where she fell. GCS 15. Brain of the CT C- spine reveals a mild to moderate left frontal hemorrhagic contusion. I spoke with from [facility] emergency department. I also spoke with , the trauma surgeon, from [facility] who will accept patient. Patient is otherwise resting comfortably and is hemodynamically stable. Patient was informed regarding the plan. Patient will be transferred via tablets. Case discussed with . Disposition Clinical Impression: Fall, Head injury, Focal hemorrhagic contusion of cerebrum Disposition: OTHER INSTITUTION NOT DEFINED Condition: Stable Additional Instructions: Patient will be transferred via ambulance to [facility]. Is patient prescribed a controlled substance at d/c from ED?: No Referrals: Chavo Burch DO [Primary Care Provider] - 1-2 days Time of Disposition: 18:17 - Out of Hospital Transfer - Req. Specs Out of Hospital Transfer - Requested Specifics: Other Emergency Center ([facility])
[2020-07-14] MEDS ORDERED: Acetaminophen-Codeine 300-30mg TAB PO STA (17:47)
[2020-07-14] MEDS ORDERED: ONDANSETRON ODT 4 MG TAB PO STA (17:53)
--- NOTE | 2020-07-14 17:58 | CT ---
EXAMINATION TYPE: CT brain kim craft DATE OF EXAM: 07/14/2020 COMPARISON: None available. HISTORY: headache post fall with blow to head, denies neck pain CT DLP: 1353.7 mGycm Automated exposure control for dose reduction was used. TECHNIQUE: CT scan of the head and cervical spine are performed without contrast. FINDINGS: There is a 1.4 cm hypodense focus in the left frontal lobe, consistent with hemorrhagic c ontusion. No significant mass effect, or midline shift identified. The ventricles and sulci are with in normal limits in size. The globes are intact and the visualized sinuses are clear. The calvarium is intact. Cervical spine is visualized in its entirety from C1 through upper thoracic levels and demonstrates s atisfactory alignment without evidence of acute fracture or dislocation. Prevertebral soft tissue ap pears within normal limits. The C1-C2 articulation is unremarkable. IMPRESSION: Mild to moderate left frontal lobe hemorrhagic contusion. No significant midline shift. No acute abnormality of the cervical spine. Findings were reported to David PAIGE, by me at time of dictation.
[2020-07-14] MEDS ORDERED: ONDANSETRON 4 MG/2 ML VIAL IM STA (18:39)
== END 2020-07-14 18:49 | disposition other institution (70) ==
LOC: EC 17:07
DX: S06.339A Contusion and laceration of cerebrum, unspecified, with loss of consciousness of unspecified duration, initial encounter (principal); F17.200 Nicotine dependence, unspecified, uncomplicated; Z91.048 Other nonmedicinal substance allergy status; Z88.1 Allergy status to other antibiotic agents; Z88.2 Allergy status to sulfonamides; W01.0XXA Fall on same level from slipping, tripping and stumbling without subsequent striking against object, initial encounter; Y93.E1 Activity, personal bathing and showering; Y92.002 Bathroom of unspecified non-institutional (private) residence as the place of occurrence of the external cause
CPT/HCPCS: 72125; 70450; 99284; 96372; J2405

== ENCOUNTER → 2020-09-14 | Outpatient (CLI) | payer OTHER ==
--- NOTE | 2020-09-15 14:27 | XR ---
EXAMINATION TYPE: XR knee complete RT DATE OF EXAM: 09/14/2020 COMPARISON: None HISTORY: Lump anterior knee TECHNIQUE: 3 view right knee FINDINGS: No acute fracture or dislocations are evident. Joint spaces are preserved. No joint effusio n is present. IMPRESSION: 1. No acute osseous abnormality.
== END ==
LOC: RADXRMAIN 16:14
PROVIDERS: ATTEND Nurse Practitioner Family
DX: R22.42 Localized swelling, mass and lump, left lower limb (principal)

== ENCOUNTER 2021-01-24 22:37 | Emergency (ER) | payer OTHER ==
[2021-01-24 23:07] VITALS: RESP 16
[2021-01-24] MEDS ORDERED: DIPH,PERTUS(ACELL)TETVAC-LF 0.5 ML VIAL IM ONE (23:27)
[2021-01-24] MEDS ORDERED: IBUPROFEN 600 MG TAB PO STA (23:27)
--- NOTE | 2021-01-24 23:32 | ED ---
Lower Extremity Injury HPI - General Chief Complaint: Extremity Injury, Lower Stated Complaint: Left foot injury Source: patient, RN notes reviewed Mode of arrival: ambulatory Limitations: no limitations - History of Present Illness Initial Comments: Well-appearing and pleasant 25-year-old female presents to the emergency room with complaints of 2 weeks of left foot pain. Patient states that she dropped it Neutrogena soap bilateral on the top of her foot but continues to cause her pain with ambulation and palpation. She states that she now noticed that it seems more swollen. She states that she gets relief with elevation and rest and is worse with walking. He denies any fevers. There is a small abrasion to the top of blood which is well-appearing with no drainage or erythema. She has worsening pain with palpation over the third and fourth metatarsals. She did not take anything for pain today. MD Complaint: foot injury -: week(s) (2) Injury: Foot: Left (dropped Neutrogena soap bottle on her foot 2 weeks ago) Type of Injury: blunt Severity scale (1-10): 4 Worsens With: weight bearing, palpation Context: direct blow Associated Symptoms: swelling Treatments Prior to Arrival: bandage - Related Data Home Medications Medication Instructions Recorded Confirmed Norelgestromin/Ethin.estradiol 1 patch TRANSDERM Q28D 02/26/20 07/14/20 [Xulane 150-35 Mcg/Day Patch] Allergies Allergy/AdvReac Type Severity Reaction Status Date / Time adhesive tape Allergy Rash/Hives Verified 01/24/21 23:04 sulfamethoxazole Allergy Rash/Hives Verified 01/24/21 23:04 [From Bactrim] Review of Systems ROS Statement: Those systems with pertinent positive or pertinent negative responses have been documented in the HPI. ROS Other: All systems not noted in ROS Statement are negative. Past Medical History Past Medical History: GERD/Reflux Additional Past Medical History / Comment(s): Hx Genital herpes. Pain after eating in abd and back. History of Any Multi-Drug Resistant Organisms: None Reported Past Surgical History: Section, Cholecystectomy, Ear Surgery Additional Past Surgical History / Comment(s): C-S x2. BMT Rt ear. Past Anesthesia/Blood Transfusion Reactions: Motion Sickness Additional Past Anesthesia/Blood Transfusion Reaction / Comment(s): has never had anesthesia before Past Psychological History: Anxiety, Depression Smoking Status: Current every day smoker Past Alcohol Use History: None Reported Past Drug Use History: None Reported - Past Family History Mother Family Medical History: No Reported History General Exam Limitations: no limitations General appearance: alert, in no apparent distress Head exam: Present: atraumatic, normocephalic, normal inspection Eye exam: Present: normal appearance, PERRL, EOMI. Absent: scleral icterus, conjunctival injection, periorbital swelling ENT exam: Present: normal exam, normal oropharynx, mucous membranes moist Neck exam: Present: normal inspection, full ROM. Absent: tenderness, meningismus, lymphadenopathy Respiratory exam: Present: normal lung sounds bilaterally. Absent: respiratory distress, wheezes, rales, rhonchi, stridor, chest wall tenderness, accessory muscle use, decreased breath sounds, prolonged expiratory Cardiovascular Exam: Present: regular rate, normal rhythm, normal heart sounds. Absent: systolic murmur, diastolic murmur, rubs, gallop, clicks Extremities exam: Present: normal inspection, full ROM, tenderness, normal capillary refill. Absent: pedal edema, joint swelling, calf tenderness Left Foot/Toe exam: Present: tenderness, swelling, abrasion (3rd and 4th metatarsal) Neurovascular tendon exam: Present: no vascular compromise. Absent: pulse deficit, abnormal cap refill, motor deficit, sensory deficit, tendon deficit, extremity cold to touch, pallor, decreased fine/light touch, foot drop Back exam: Present: full ROM. Absent: tenderness, CVA tenderness (R), CVA tenderness (L), muscle spasm, paraspinal tenderness, vertebral tenderness Neurological exam: Present: alert, oriented X3, CN II-XII intact Psychiatric exam: Present: normal affect, normal mood Skin exam: Present: warm, dry, intact, normal color. Absent: rash, cyanosis, diaphoretic, erythema, petechiae, pallor, mottled Course Vital Signs 01/24/21 23:04 Temperature 98.2 F Pulse Rate 70 Respiratory 16 Rate Blood Pressure 117/70 O2 Sat by Pulse 100 Oximetry Procedures - Orthopedic Splinting/Casting Injury #1 Side: left Lower Extremity Injury Location: foot Lower Extremity Immobilizer: post-op shoe Medical Decision Making - Medical Decision Making X-ray of the left foot shows metatarsals are intact with no fracture disloc ation. Soft tissue swelling noted. Patient is able to ambulate, she denies any fevers, there is no erythema or sign of infection. Her tetanus shot was updated today. Patient given or though shoe for comfort. She will be directed to follow up with her primary care doctor and also given a referral to orthopedics. Case discussed with Dr. Bella. Disposition Clinical Impression: Foot pain, Contusion Disposition: HOME SELF-CARE Instructions (If sedation given, give patient instructions): Foot Contusion (ED), Abrasion (ED) Additional Instructions: Follow up with primary care doctor in 1 week. Rest, ice and elevate. Use Motrin for pain. Return if increasing pain or fevers Is patient prescribed a controlled substance at d/c from ED?: No Referrals: Chavo Burch DO [Primary Care Provider] - 1-2 days Mickey Jacome MD [STAFF PHYSICIAN] - 1-2 days
--- NOTE | 2021-01-25 | XR ---
EXAMINATION TYPE: XR foot complete LT DATE OF EXAM: 01/24/2021 COMPARISON: NONE HISTORY: Pain TECHNIQUE: 3 views FINDINGS: The metatarsals are intact. I see no fracture nor dislocation. Joint spaces are fairly norm al. The toes appear intact. IMPRESSION: Negative left foot exam.
[2021-01-25 00:29] VITALS: BP 111/64; PULSE 60; TEMP 97.4
== END 2021-01-25 00:37 | disposition home or self-care (01) ==
LOC: EC 22:37
DX: S90.32XA Contusion of left foot, initial encounter (principal); F17.200 Nicotine dependence, unspecified, uncomplicated; Z88.1 Allergy status to other antibiotic agents; Z88.2 Allergy status to sulfonamides; Z23 Encounter for immunization; Z91.09 Other allergy status, other than to drugs and biological substances; W20.8XXA Other cause of strike by thrown, projected or falling object, initial encounter
CPT/HCPCS: 90471; 90715; 99283

== ENCOUNTER 2021-05-31 07:34 | Day surgery (SDC) | payer OTHER ==
[2021-05-17 12:27] VITALS: BMI 30.9
[~2021-05-31 07:34] MED LIST changes: -DEXAMETHASONE SOD PHOSPHATE 10 MG/ML 1 ML VIAL IV ONE; -HEPARIN SODIUM,PORCINE 5,000 UNIT/ML 1 ML VIAL SQ ONE; -HYDROmorphone 0.5 MG/0.5 ML SYRINGE IVP PRN; -MIDAZOLAM 2 MG/2 ML VIAL IV PRN; -ONDANSETRON 4 MG/2 ML VIAL IVP ONE
[2021-05-31 07:53] VITALS: RESP 18; TEMP 97.2
[2021-05-31] MEDS ORDERED: PROPOFOL 10 MG/ML 20 ML VIAL IV ONE (08:15)
--- NOTE | 2021-05-31 08:18 | P.GSHP ---
History of Present Illness H&P Date: 05/31/21 CHIEF COMPLAINT: GERD and change in bowel habits HISTORY OF PRESENT ILLNESS: The patient is a 26-year-old female who presents with gastroesophageal reflux disease and change in bowel habits. Upper and lower endoscopy were offered for further evaluation and management. PAST MEDICAL HISTORY: Please see list. PAST SURGICAL HISTORY: Please see list. MEDICATIONS: Please see list. ALLERGIES: Please see list. SOCIAL HISTORY: No illicit drug use FAMILY HISTORY: No reports of Crohn disease or ulcerative colitis. REVIEW OF ORGAN SYSTEMS: CONSTITUTIONAL: No reports of fevers or chills. GI: Denies any blood in stools or constipation. PHYSICAL EXAM: VITAL SIGNS: Stable GENERAL: Well-developed pleasant in no acute distress. HEENT: No scleral icterus. Extraocular movements grossly intact. Moist buccal mucosa. NECK: Supple without lymphadenopathy. CHEST: Unlabored respirations. Equal bilateral excursions. CARDIOVASCULAR: Regular rate and rhythm. Distal 2+ pulses. ABDOMEN: Soft, nondistended. MUSCULOSKELETAL: No clubbing, cyanosis, or edema. ASSESSMENT: 1. Gastroesophageal reflux disease 2. Change in bowel habits. PLAN: 1. Recommend proceeding with an upper and lower endoscopy Past Medical History Past Medical History: GERD/Reflux Additional Past Medical History / Comment(s): Hx Genital herpes. ABDOMINAL . RECENT STREPT THROAT History of Any Multi-Drug Resistant Organisms: None Reported Past Surgical History: Section, Cholecystectomy, Ear Surgery Additional Past Surgical History / Comment(s): C-S x2. BMT Rt ear. Past Anesthesia/Blood Transfusion Reactions: Motion Sickness Additional Past Anesthesia/Blood Transfusion Reaction / Comment(s): has never quevedo d anesthesia before Smoking Status: Current every day smoker - Past Family History Mother Family Medical History: No Reported History Medications and Allergies Home Medications Medication Instructions Recorded Confirmed Type Norelgestromin/Ethin.estradiol 1 patch TRANSDERM Q21D 02/26/20 05/31/21 History [Xulane 150-35 Mcg/Day Patch] Allergies Allergy/AdvReac Type Severity Reaction Status Date / Time adhesive tape Allergy Rash/Hives Verified 05/31/21 07:47 sulfamethoxazole Allergy Rash/Hives Verified 05/31/21 07:47 [From Bactrim] Surgical - Exam Vital Signs Temp Pulse Resp BP Pulse Ox 97.2 F L 70 18 117/59 100 05/31/21 07:51 05/31/21 07:51 05/31/21 07:51 05/31/21 07:51 05/31/21 07:51
--- NOTE | 2021-05-31 08:32 | P.PCN ---
Date of Procedure: 05/31/21 Description of Procedure: PREOPERATIVE DIAGNOSIS: Gastroesophageal reflux disease. Epigastric abdominal pain POSTOPERATIVE DIAGNOSIS: Gastroesophageal reflux disease. Epigastric abdominal pain Gastritis Duodenitis OPERATION: Esophagogastroduodenoscopy with biopsies along antrum and duodenitis SURGEON: Santa Perry MD ANESTHESIA: MAC. INDICATIONS: The patient is a 26-year-old female who presents with gastroesophageal reflux disease and epigastric abdominal pain. Benefits and risks of the procedure were described. Informed consent was obtained. DESCRIPTION: The patient was brought into the endoscopy suite and laid in the left lateral decubitus position. An Olympus gastroscope was passed along the posterior oropharynx down to the distal esophagus where the squamocolumnar junction was encountered at 34 cm from the incisors. The stomach was entered and no bile reflux was found. Additional findings are listed below. Biopsies with cold forceps were obtained of the antrum. The first through third portion of the duodenum was examined and biopsies obtained for celiac disease. Retroflexion of the scope confirmed Hill grade 1 lower esophageal valve. The squamocolumnar junction demonstrated LA grade A erosive esophagitis. The stomach was desufflated. The patient tolerated the procedure well. FINDINGS: Squamocolumnar junction 34 cm from the incisors. Diaphragmatic hiatus at 34 cm. Hill grade 1 lower esophageal valve. LA grade A erosive esophagitis. Duodenitis with biopsies obtained Chronic gastritis RECOMMENDATIONS: 1. Recommend discontinue smoking of any type 2. Upper endoscopy as needed.
[2021-05-31 09:11] VITALS: BP 111/59; PULSE 60
--- NOTE | 2021-05-31 09:27 | P.PCN ---
Date of Procedure: 05/31/21 Description of Procedure: PREOPERATIVE DIAGNOSIS: Change in bowel habits POSTOPERATIVE DIAGNOSIS: Change in bowel habits Colitis OPERATION: Colonoscopy to the cecum, ileocecal valve and appendiceal orifice. Colonoscopy with random cold forceps biopsies SURGEON: Santa Perry MD. ANESTHESIA: MAC. INDICATIONS: The patient is a 59-year-old female who presents for colonoscopy screening. Benefits and risks were described and informed consent was obtained. DESCRIPTION OF PROCEDURE: The patient had undergone Sutab prep. The patient had been brought into the operating room and laid in the left lateral decubitus position. After adequate intravenous sedation, the rectum was examined with 2% lidocaine jelly. No external hemorrhoids were encountered. The rectal tone was within normal limits. No lesions were palpated in the rectal vault. An Olympus colonoscope was advanced until the cecum, ileocecal valve and appendiceal orifice were clearly viewed. The prep was good. No scattered diverticulosis was encountered. No colonic polyps were found. Random biopsies with cold forceps were obtained for colitis. Retroflexion of the scope demonstrated grade 1 internal hemorrhoids without active bleeding or inflammation. The colon was desufflated. The patient had tolerated the procedure well. Withdrawal time was over 6 minutes. FINDINGS: Aronchick preparation quality scale 2 (1-5) Internal hemorrhoids, grade 1 No external prolapsed hemorrhoids. No arteriovenous malformations. No adenomatous polyps. Random biopsies obtained for colitis. RECOMMENDATIONS: Lower endoscopy as needed Plan - Discharge Summary Discharge Rx Participant: No New Discharge Prescriptions: New Sucralfate [Carafate] 1 gm PO BID #30 tablet Continue Norelgestromin/Ethin.estradiol [Xulane 150-35 Mcg/Day Patch] 1 patch TRANSDERM Q21D Discharge Medication List Norelgestromin/Ethin.estradiol [Xulane 150-35 Mcg/Day Patch] 1 patch TRANSDERM Q21D 02/26/20 [History] Sucralfate [Carafate] 1 gm PO BID #30 tablet 05/31/21 [Rx] Follow up Appointment(s)/Referral(s): Santa Perry MD [STAFF PHYSICIAN] - 06/15/21 Patient Instructions/Handouts: Gastritis (DC), *Surgery [facility] - (Anesthesia) Endoscopy Discharge Instructions Discharge Disposition: HOME SELF-CARE
== END 2021-05-31 09:52 | disposition home or self-care (01) ==
LOC: ORWHC2ENDO 07:34
PROVIDERS: ATTEND Surgery Plastic and Reconstructive Surgery
DX: R19.4 Change in bowel habit (principal); K64.0 First degree hemorrhoids; K22.10 Ulcer of esophagus without bleeding; K29.80 Duodenitis without bleeding; K29.50 Unspecified chronic gastritis without bleeding; Z87.42 Personal history of other diseases of the female genital tract; Z98.891 History of uterine scar from previous surgery; Z90.49 Acquired absence of other specified parts of digestive tract; F17.200 Nicotine dependence, unspecified, uncomplicated; Z79.3 Long term (current) use of hormonal contraceptives; Z88.2 Allergy status to sulfonamides; Z91.09 Other allergy status, other than to drugs and biological substances; F41.9 Anxiety disorder, unspecified; F32.A Depression, unspecified
CPT/HCPCS: 81025; 88305; 45380; 43239; J2704

== ENCOUNTER 2021-06-06 15:21 | Emergency (ER) | payer OTHER ==
[2021-06-06 15:45] VITALS: BP 109/55; PULSE 55; RESP 16; TEMP 98.7
[2021-06-06 16:28] LABS: Amorphous Sediment,Urine Rare /hpf; Appearance,Urine Cloudy (Clear); Bacteria,Urine Moderate /hpf; Bilirubin,Urine Negative (Negative); Blood,Urine Negative (Negative); Color,Urine Yellow; Glucose,Urine (UA) Negative (Negative); Ketones,Urine Negative (Negative); Leukocyte Esterase,Urine Negative (Negative); Mucus,Urine Many /hpf; Nitrite,Urine Negative (Negative); PH, Urine 6.5 (5.0-8.0); Protein,Urine Trace (Negative); RBC,Urine 1 /hpf (0-5); Specific Gravity,Urine 1.025 (1.001-1.035); Squamous Epithelial Cell,Urine 1 /hpf (0-4); Urobilinogen,Urine <2.0 mg/dL (<2.0); WBC,Urine 4 /hpf (0-5)
--- NOTE | 2021-06-06 16:46 | ED ---
General Adult HPI - General Chief complaint: Vaginal Bleeding Stated complaint: Vaginal Bleeding, Time Seen by Provider: 06/06/21 16:40 Source: patient, RN notes reviewed, old records reviewed Mode of arrival: ambulatory Limitations: no limitations - History of Present Illness Initial comments: This is a well-appearing 26-year-old female that presents to the emergency room with complaints of vaginal bleeding for the past 3 days. She states that her insurance did not cover her control patch for 3 days in May and she believes this may be the cause of her bleeding however she wants to make sure. She also wants to make sure that she is not and having a miscarriage. She denies any dizziness, fevers, nausea vomiting or diarrhea. She has a history of herpes virus, x2, and cholecystectomy. She is a smoker but denies any alcohol or drug use. -: days(s) (3) Location: pelvis Severity scale (1-10): 5 Quality: aching Consistency: intermittent Improves with: none Worsens with: other (palpation) Associated Symptoms: other (vaginal bleeding) - Related Data Home Medications Medication Instructions Recorded Confirmed Norelgestromin/Ethin.estradiol 1 patch TRANSDERM SA 06/06/21 06/06/21 [Zafemy 150-35 Mcg/Day Patch] Omeprazole 20 mg PO DAILY PRN 06/06/21 06/06/21 Allergies Allergy/AdvReac Type Severity Reaction Status Date / Time adhesive tape Allergy Rash/Hives Verified 06/06/21 17:06 sulfamethoxazole Allergy Rash/Hives Verified 06/06/21 17:06 [From Bactrim] Review of Systems ROS Statement: Those systems with pertinent positive or pertinent negative responses have been documented in the HPI. ROS Other: All systems not noted in ROS Statement are negative. Past Medical History Past Medical History: GERD/Reflux Additional Past Medical History / Comment(s): Hx Genital herpes. ABDOMINAL . RECENT STREPT THROAT History of Any Multi-Drug Resistant Organisms: None Reported Past Surgical History: Section, Cholecystectomy, Ear Surgery Additional Past Surgical History / Comment(s): C-S x2. BMT Rt ear. Past Anesthesia/Blood Transfusion Reactions: Motion Sickness Additional Past Anesthesia/Blood Transfusion Reaction / Comment(s): has never had anesthesia before Past Psychological History: Anxiety, Depression Smoking Status: Current every day smoker Past Alcohol Use History: None Reported Past Drug Use History: None Reported - Past Family History Mother Family Medical History: No Reported History General Exam Limitations: no limitations General appearance: alert, in no apparent distress Head exam: Present: atraumatic, normocephalic, normal inspection Eye exam: Present: normal appearance, EOMI ENT exam: Present: normal exam, mucous membranes moist Neck exam: Present: normal inspection, full ROM. Absent: tenderness, men ingismus, lymphadenopathy Respiratory exam: Present: normal lung sounds bilaterally. Absent: respiratory distress, wheezes, rales, rhonchi, stridor Cardiovascular Exam: Present: bradycardia GI/Abdominal exam: Present: soft, tenderness (Right groin), normal bowel sounds. Absent: distended, guarding, rebound, rigid Extremities exam: Present: normal inspection, full ROM, normal capillary refill. Absent: tenderness, pedal edema, joint swelling, calf tenderness Back exam: Present: normal inspection, full ROM. Absent: tenderness, CVA tenderness (R), CVA tenderness (L), rash noted Neurological exam: Present: alert, oriented X3, normal gait Psychiatric exam: Present: normal affect, normal mood Skin exam: Present: warm, dry, intact, normal color. Absent: rash, cyanosis, diaphoretic, petechiae, pallor Course Vital Signs 06/06/21 15:42 Temperature 98.7 F Pulse Rate 55 L Respiratory 16 Rate Blood Pressure 109/55 O2 Sat by Pulse 97 Oximetry Medical Decision Making - Medical Decision Making Well-appearing 26-year-old patient presents to the emergency room with vaginal bleeding for the past 3 days. She states is not her normal time for menstruation. She is on a control patch but did miss several doses in May. She is concerned about the amount of blood loss, and possibility of and having a miscarriage. She denies any dizziness. Patient's hemogl obin and hematocrit is stable at 11.9 and 35.4 respectively. Her urinalysis is negative for infection. Her urine test is negative. Ultrasound was completed due to the patient's right groin pain. There is no evidence of ovarian torsion. Patient's breakthrough bleeding is likely caused by her missing doses of her control patch in May. I did explain to the patient that she should follow-up with her label machine operator next week. Return to the emergency room with any new or worsening symptoms or heavy bleeding or pain. She is agreeable to this plan of care. Case was discussed with Dr. Carrillo. - Lab Data Result diagrams: 06/06/21 17:17 Lab Results 06/06/21 06/06/21 06/06/21 Range/Units 16:14 16:14 17:17 WBC 8.3 (3.8-10.6) k/uL RBC 4.06 (3.80-5.40) m/uL Hgb 11.9 (11.4-16.0) gm/dL Hct 35.4 (34.0-46.0) % MCV 87.1 (80.0-100.0) fL MCH 29.2 (25.0-35.0) pg MCHC 33.5 (31.0-37.0) g/dL RDW 13.6 (11.5-15.5) % Plt Count 249 (150-450) k/uL MPV 7.9 Urine Color Yellow Urine Appearance Cloudy H (Clear) Urine pH 6.5 (5.0-8.0) Ur Specific [place] 1.025 (1.001-1.035) Urine Protein Trace H (Negative) Urine Glucose (UA) Negative (Negative) Urine Ketones Negative (Negative) Urine Blood Negative (Negative) Urine Nitrite Negative (Negative) Urine Bilirubin Negative (Negative) Urine Urobilinogen <2.0 (<2.0) mg/dL Ur Leukocyte Esterase Negative (Negative) Urine RBC 1 (0-5) /hpf Urine WBC 4 (0-5) /hpf Ur Squamous Epith Cells 1 (0-4) /hpf Amorphous Sediment Rare H (None) /hpf Urine Bacteria Moderate H (None) /hpf Urine Mucus Many H (None) /hpf Urine HCG, Qual Not Detected (Not Detectd) Disposition Clinical Impression: Vaginal bleeding Disposition: HOME SELF-CARE Condition: Good Instructions (If sedation given, give patient instructions): Dysfunctional Uterine Bleeding (ED) Additional Instructions: Follow-up with your label machine operator or primary care doctor next week. Return to the emergency room with any new or worsening symptoms. Is patient prescribed a controlled substance at d/c from ED?: No Referrals: Chavo Burch DO [Primary Care Provider] - 1-2 days Time of Disposition: 18:21
[2021-06-06 17:28] LABS: HCT 35.4 % (34.0-46.0); HGB 11.9 gm/dL (11.4-16.0); MCH 29.2 pg (25.0-35.0); MCHC 33.5 g/dL (31.0-37.0); MCV 87.1 fL (80.0-100.0); Mean Platelet Volume 7.9; Platelet Count 249 k/uL (150-450); RBC 4.06 m/uL (3.80-5.40); RDW 13.6 % (11.5-15.5); WBC 8.3 k/uL (3.8-10.6)
--- NOTE | 2021-06-06 17:57 | US ---
EXAMINATION TYPE: US transvaginal DATE OF EXAM: 06/06/2021 COMPARISON: NONE CLINICAL HISTORY: torsion. Heavy bleeding with clots for 3 days. cramping. 2 prior c-sections TECHNIQUE: Transvaginal (TV). Date of LMP: 3 weeks ago EXAM MEASUREMENTS: Uterus: 7.5 x 3.7 x 4.3 cm Endometrial Stripe: 0.6 cm Right Ovary: 2.3 x 1.5 x 1.7 cm Left Ovary: unable to visualize 1. Uterus: Anteverted . Anterior lower uterine segment section scar. 2. Endometrium: Normal. 3. Right Ovary: Normal. 4. Left Ovary: Obscured by overlying bowel gas Spectral, color and waveform doppler imaging shows good arterial and venous flow within the right o vary with no evidence for ovarian torsion. 5. Bilateral Adnexa: Normal. 6. Posterior cul-de-sac: No pelvic free fluid. IMPRESSION: 1. No right ovarian torsion. 2. Nonvisualization of the left ovary due to overlying bowel gas. 3. No acute findings of the uterus/endometrium. 4. No pelvic free fluid.
== END 2021-06-06 18:48 | disposition home or self-care (01) ==
LOC: EC 15:21
DX: N93.9 Abnormal uterine and vaginal bleeding, unspecified (principal); K21.9 Gastro-esophageal reflux disease without esophagitis; F17.200 Nicotine dependence, unspecified, uncomplicated; Z79.899 Other long term (current) drug therapy
CPT/HCPCS: 36415; 76830; 81001; 81025; 85027; 93976; 99284

== ENCOUNTER → 2021-09-23 | Outpatient (CLI) | payer OTHER ==
--- NOTE | 2021-09-23 11:23 | US ---
EXAMINATION TYPE: US pelvis complete transvag DATE OF EXAM: 09/23/2021 COMPARISON: US CLINICAL HISTORY: R10.2 Pelvic pain. Pelvic pain. Hx C Sections. . TECHNIQUE: Transvaginal (TV) and Transabdominal (TA) . Transabdominal sonographic images of the pel vis were acquired. Transvaginal sonographic images were medically necessary to better assess the fol lowing anatomy: Right ovary and endometrium. Date of LMP: Unknown per patient. EXAM MEASUREMENTS: Uterus: 7.5 x 5.1 x 3.8 cm Endometrial Stripe: 0.31 cm Right Ovary: 3.4 x 1.5 x 1.6 cm Left Ovary: 2.9 x 2.4 x 1.7 cm 1. Uterus: 7.5 x 5.1 x 3.8 cm. Anteverted. C Section scar within anterior uterus. Hyperechoic area s een lower uterus: 0.3 x 0.2 x 0.3 cm. 2. Endometrium: Complex fluid seen within: 0.6 x 0.7 x 0.4 cm. 3. Right Ovary: Follicles seen. 4. Left Ovary: Follicles seen. 5. Bilateral Adnexa: Fluid seen within the right adnexa: 1.0 x 1.1 x 1.2 cm. 6. Posterior cul-de-sac: Appears wnl. IMPRESSION: 1. Normal appearance pelvic ultrasound. 2. Small amount of fluid in the right adnexal region may be physiologic.
== END | disposition home or self-care (01) ==
LOC: RADUSWWP 08:20
PROVIDERS: ATTEND Obstetrics & Gynecology
DX: R10.2 Pelvic and perineal pain (principal)
CPT/HCPCS: 76830; 76856

== ENCOUNTER → 2022-02-17 | Outpatient (CLI) | payer OTHER ==
--- NOTE | 2022-02-17 14:50 | US ---
EXAMINATION TYPE: US pelvis complete transvag DATE OF EXAM: 02/17/2022 COMPARISON: NONE CLINICAL HISTORY: R10.2 Pelvic pain. pelvic pain for a few months. 2 c-sections TECHNIQUE: Transvaginal (TV) and Transabdominal (TA) . Transabdominal sonographic images of the pel vis were acquired. Transvaginal sonographic images were medically necessary to better assess the fol lowing anatomy: ovaries Date of LMP: 3 weeks ago EXAM MEASUREMENTS: Uterus: 8.7 x 4.1 x 4.5 cm Endometrial Stripe: 0.3 cm Right Ovary: 2.9 x 1.4 x 1.3 cm Left Ovary: 3.0 x 1.5 x 1.5 cm 1. Uterus: Anteverted wnl 2. Endometrium: wnl 3. Right Ovary: wnl 4. Left Ovary: wnl 5. Bilateral Adnexa: appears wnl 6. Posterior cul-de-sac: small amount of free fluid IMPRESSION: Small amount of free fluid. Otherwise unremarkable study.
== END | disposition home or self-care (01) ==
LOC: RADUSWWP 13:45
PROVIDERS: ATTEND Obstetrics & Gynecology
DX: R10.2 Pelvic and perineal pain (principal)
CPT/HCPCS: 76830; 76856

== ENCOUNTER 2022-11-29 12:13 | Emergency (ER) | payer OTHER ==
[2022-11-29 12:25] VITALS: BP 113/73; PULSE 60; TEMP 97.9
[2022-11-29] MEDS ORDERED: ONDANSETRON ODT 4 MG TAB PO STA (12:38)
[2022-11-29] MEDS ORDERED: KETOROLAC 15 MG/ML 1 ML VIAL IM STA (12:38)
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
--- NOTE | 2022-11-29 14:30 | XR ---
EXAMINATION TYPE: XR chest 2V, XR sternum DATE OF EXAM: 11/29/2022 COMPARISON: NONE HISTORY: Chest pain TECHNIQUE: Frontal and lateral views of the chest are obtained. Anterior mediastinal FINDINGS: There is no focal air space opacity. No evidence for pneumothorax. No pleural effusion. The cardiac silhouette size is within normal limits. The osseous structures are grossly intact. The sternum is grossly intact. IMPRESSION: 1. No acute cardiopulmonary process.
--- NOTE | 2022-11-29 14:46 | XR ---
EXAMINATION TYPE: XR shoulder complete RT DATE OF EXAM: 11/29/2022 CLINICAL HISTORY: pain TECHNIQUE: Three views of the right shoulder are obtained. COMPARISON: None FINDINGS: There is no acute fracture/dislocation evident. The acromioclavicular and glenohumeral julee int spaces appear within normal limits. The visualized ribs are intact and unremarkable. IMPRESSION: 1. There is no acute fracture or dislocation. ICD 10 NO FRACTURE, INITIAL EVALUATION
[2022-11-29 15:12] VITALS: RESP 16
== END 2022-11-29 15:12 | disposition home or self-care (01) ==
LOC: EC 12:13
DX: S16.1XXA Strain of muscle, fascia and tendon at neck level, initial encounter (principal); K21.9 Gastro-esophageal reflux disease without esophagitis; F41.9 Anxiety disorder, unspecified; F32.A Depression, unspecified; F17.200 Nicotine dependence, unspecified, uncomplicated; F12.90 Cannabis use, unspecified, uncomplicated; Z88.2 Allergy status to sulfonamides; Z91.048 Other nonmedicinal substance allergy status; Z79.899 Other long term (current) drug therapy; V49.50XA Passenger injured in collision with unspecified motor vehicles in traffic accident, initial encounter
CPT/HCPCS: 99284 ×2; 96372 ×2; 71120; 73030; 71046; 72125; J1885

== ENCOUNTER 2023-05-27 16:37 | Emergency (ER) | payer OTHER ==
--- NOTE | 2023-05-27 17:57 | ED ---
General Adult HPI - General Chief complaint: Upper Respiratory Infection Stated complaint: cough-congestion Time Seen by Provider: 05/27/23 17:49 Source: patient, RN notes reviewed, old records reviewed Mode of arrival: ambulatory Limitations: no limitations - History of Present Illness Initial comments: 28-year-old female with cough and congestion. Patient states she's had a cough since she had Covid in April. She developed worsening symptoms of congestion, mild headache over the past several days. She denies history of asthma or chronic medical conditions. No measured fever. No vomiting. No chest pain or abdominal pain. - Related Data Home Medications Medication Instructions Recorded Confirmed Norelgestromin/Ethin.estradiol 1 patch TRANSDERM SA 06/06/21 06/06/21 [Zafemy 150-35 Mcg/Day Patch] Omeprazole 20 mg PO DAILY PRN 06/06/21 06/06/21 Previous Rx's Medication Instructions Recorded Cyclobenzaprine [Flexeril] 10 mg PO TID #20 tab 11/29/22 Ketorolac [Toradol] 10 mg PO Q6HR #15 tab 11/29/22 Albuterol Inhaler [Ventolin Hfa 1 - 2 puff INHALATION Q4HR PRN #1 05/27/23 Inhaler] each methylPREDNISolone Dose Pack 4 mg PO DIRECTED #21 packet 05/27/23 [Medrol Dose Pack] Allergies Allergy/AdvReac Type Severity Reaction Status Date / Time adhesive tape Allergy Rash/Hives Verified 05/27/23 17:55 sulfamethoxazole Allergy Rash/Hives Verified 05/27/23 17:55 [From Bactrim] Review of Systems ROS Statement: Those systems with pertinent positive or pertinent negative responses have been documented in the HPI. ROS Other: All systems not noted in ROS Statement are negative. Past Medical History Past Medical History: GERD/Reflux Additional Past Medical History / Comment(s): Hx Genital herpes. ABDOMINAL . RECENT STREPT THROAT , COVID 04/24 History of Any Multi-Drug Resistant Organisms: None Reported Past Surgical History: Section, Cholecystectomy, Ear Surgery Additional Past Surgical History / Comment(s): C-S x2. BMT Rt ear. Past Anesthesia/Blood Transfusion Reactions: Motion Sickness Additional Past Anesthesia/Blood Transfusion Reaction / Comment(s): has never had anesthesia before Past Psychological History: Anxiety, Depression Smoking Status: Current every day smoker Past Alcohol Use History: Occasional Past Drug Use History: Marijuana - Past Family History Mother Family Medical History: No Reported History General Exam Limitations: no limitations General appearance: alert, in no apparent distress Head exam: Present: atraumatic, normocephalic Eye exam: Present: normal appearance, PERRL ENT exam: Present: normal exam Neck exam: Present: normal inspection. Absent: tenderness, meningismus Respiratory exam: Present: normal lung sounds bilaterally. Absent: respiratory distress Cardiovascular Exam: Present: regular rate, normal rhythm GI/Abdominal exam: Present: soft. Absent: distended, tenderness, guarding Neurological exam: Present: alert, oriented X3 Psychiatric exam: Present: normal affect, normal mood Skin exam: Present: warm, dry, intact Course Vital Signs 05/27/23 17:51 Temperature 98.0 F Pulse Rate 92 Respiratory 20 Rate Blood Pressure 118/74 O2 Sat by Pulse 96 Oximetry Medical Decision Making - Medical Decision Making Was pt. sent in by a medical professional or institution (, PA, [employer], urgent care, hospital, or custodial...) When possible be specific @ -No Did you speak to anyone other than the patient for history (EMS, parent, family, police, friend...)? What history was obtained from this source @ -No Did you review nursing and triage notes (agree or disagree)? Why? @ -I reviewed and agree with nursing and triage notes Were old charts reviewed (outside hosp., previous admission, EMS record, old EKG, old radiological studies, urgent care reports/EKG's, custodial records)? Report findings @ -No old charts were reviewed Differential Diagnosis (chest pain, altered mental status, abdominal pain women, abdominal pain men, vaginal bleeding, weakness, fever, dyspnea, syncope, headache, dizziness, GI bleed, back pain, seizure, CVA, palpatations, mental health, musculoskeletal)? @ -Pneumonia, bronchitis, viral upper respiratory infection EKG interpreted by me (3pts min.). @ -As above X-rays interpreted by me (1pt min.). @ -Chest x-ray negative for acute cardiopulmonary findings, no focal pneumonia CT interpreted by me (1pt min.). @ -None done U/S interpreted by me (1pt. min.). @ -None done What testing was considered but not performed or refused? (CT, X-rays, U/S, labs)? Why? @ -None What meds were considered but not given or refused? Why? @ -None Did you discuss the management of the patient with other professionals (professionals i.e. , PA, [employer], lab, RT, psych nurse, social work msw, switch technician, teacher, tax compliance officer, rn case mgr)? Give summary @ -No Was smoking cessation discussed for >3mins.? @ -No Was critical care preformed (if so, how long)? @ -No Were there social determinants of health that impacted care today? How? (Homelessness, low income, unemployed, alcoholism, drug addiction, transportation, low edu. Level, literacy, decrease access to med. care, shelter, rehab)? @ -No Was there de-escalation of care discussed even if they declined (Discuss DNR or withdrawal of care, Hospice)? DNR status @ -No What co-morbidities impacted this encounter? (DM, HTN, Smoking, COPD, CAD, Cancer, CVA, ARF, Chemo, Hep., AIDS, mental health diagnosis, sleep apnea, morbid obesity)? @ -[Marijuana use Was patient admitted / discharged? Hospital course, mention meds given and route, prescriptions, significant lab abnormalities, going to OR and other pertinent info. @ -28-year-old female with coughing congestion, afebrile, no hypoxia, no respiratory distress. She has a bronchospastic cough she is a current smoker. Chest x-ray is clear. Viral panel is negative. Patient will be treated for acute bronchitis and she should follow-up with her primary care provider. Return parameters discussed. Undiagnosed new problem with uncertain prognosis? @ -No Drug Therapy requiring intensive monitoring for toxicity (Heparin, Nitro, Insulin, Cardizem)? @ -No Were any procedures done? @ -No Diagnosis/symptom? @ -Acute bronchitis Acute, or Chronic, or Acute on Chronic? @ Acute Uncomplicated (without systemic symptoms) or Complicated (systemic symptoms)? @ -default Side effects of treatment? @ -No Exacerbation, Progression, or Severe Exacerbation? @ -No Poses a threat to life or bodily function? How? (Chest pain, [place], [place], pneumonia, PE, COPD, DKA, ARF, appy, cholecystitis, CVA, Diverticulitis, Homicidal, Suicidal, threat to staff... and all critical care pts) @ -[Low risk at this time - Lab Data Lab Results 05/27/23 Range/Units 17:54 Influenza Type A (PCR) Not Detected (Not Detectd) Influenza Type B (PCR) Not Detected (Not Detectd) RSV (PCR) Not Detected (Not Detectd) SARS-CoV-2 (PCR) Not Detected (Not Detectd) Disposition Clinical Impression: Bronchitis Disposition: HOME SELF-CARE Condition: Fair Instructions (If sedation given, give patient instructions): Upper Respiratory Infection (ED), Acute Bronchitis (ED) Prescriptions: methylPREDNISolone Dose Pack [Medrol Dose Pack] 4 mg PO DIRECTED #21 packet Albuterol Inhaler [Ventolin Hfa Inhaler] 1 - 2 puff INHALATION Q4HR PRN #1 each PRN Reason: Shortness Of Breath Is patient prescribed a controlled substance at d/c from ED?: No Referrals: Chavo Burch DO [Primary Care Provider] - 1-2 days Time of Disposition: 19:00
[2023-05-27 18:19] VITALS: RESP 20; TEMP 98
--- NOTE | 2023-05-27 18:44 | XR ---
EXAMINATION TYPE: XR chest 2V DATE OF EXAM: 05/27/2023 6:24 PM CLINICAL INDICATION:Female, 28 years old with history of cough; [facility] COMPARISON: 11/29/2022 TECHNIQUE: XR chest 2V. Frontal PA and lateral views of the chest. FINDINGS: Lines/Tubes: None. Heart/mediastinum: Cardiomediastinal silhouette is unremarkable. Heart size is normal. Mediastinum appears normal. Pulmonary vascularity: Not increased, Lungs/Pleura: There is no evidence of pleural effusion, focal consolidation, or pneumothorax. Musculoskeletal: No acute osseous abnormality demonstrated in the limits of the exam. Mild degenerat tremaine changes of the dorsal spine. Other findings: None. IMPRESSION: No acute cardiopulmonary abnormality.
[2023-05-27 19:34] VITALS: BP 152/92; PULSE 68
== END 2023-05-27 19:25 | disposition home or self-care (01) ==
LOC: EC 16:37
DX: J40 Bronchitis, not specified as acute or chronic (principal); K21.9 Gastro-esophageal reflux disease without esophagitis; F12.90 Cannabis use, unspecified, uncomplicated; F17.200 Nicotine dependence, unspecified, uncomplicated; Z79.899 Other long term (current) drug therapy; Z88.2 Allergy status to sulfonamides; Z88.8 Allergy status to other drugs, medicaments and biological substances; Z90.49 Acquired absence of other specified parts of digestive tract; Z86.16 Personal history of COVID-19; Z20.822 Contact with and (suspected) exposure to COVID-19
CPT/HCPCS: 71046; 87636; 99283

== ENCOUNTER → 2023-10-26 | Outpatient (CLI) | payer OTHER ==
--- NOTE | 2023-10-26 14:15 | FL ---
ESOPHOGRAM. HISTORY: Dysphagia Esophagram was performed per the air contrast technique. The patient swallowed barium and effervesce nt crystals without difficulty or delay. Esophageal peristalsis and motility appear to be within normal limits. There is no evidence for filling defect, mass or diverticulum. No hiatal hernia seen. Subsequently single contrast cervical esophagram was performed which fails demonstrate evidence for a spiration penetration or mass. IMPRESSION: Unremarkable study.
== END | disposition home or self-care (01) ==
LOC: RADUSWWP 11:07
PROVIDERS: ATTEND Family Medicine
DX: R13.19 Other dysphagia (principal)
CPT/HCPCS: 74220

== ENCOUNTER → 2025-01-28 | Outpatient (CLI) | payer OTHER ==
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
== END | disposition home or self-care (01) ==
LOC: RADXRMAIN 14:09
PROVIDERS: ATTEND Nurse Practitioner Family
DX: M25.561 Pain in right knee (principal)